=== PATIENT | female | born 1935 | race Caucasian/White ===

== ENCOUNTER 2020-06-12 12:39 | Inpatient (IN) | payer OTHER ==
--- OUTSIDE RECORDS SUMMARY | 2020-06-12 12:41 | XMS REPORT | Continuity of Care Document ---
:1935 Author Organization [facility] t Address [address] [place] [address] Dr. Fishman [address] [place] [address] Care Team Providers Name Role Phone Dane LEDBETTER, G Attending Clinician Problems Condition Condition Condition Status Onset Resolution Last Treating Co mments Source Name Details Category Date Date Treatment Clinician Date Venous Venous Problem Active [facility] insufficie insufficie Soniya kes - ncy ncy Memoria (chronic) (chronic) l (periphera (periphera Ou tpati l) l) ent Clinics Atrophic Atrophic Problem [facility] Neuropathy Neuropathy Problem Active [facility] Osteoarthr Osteoarthr Problem Active [facility] itis, itis, [facility] - unspecifie unspecifie Me moria d d l osteoarthr osteoarthr Ou tpati itis type, itis type, en t unspecifie unspecifie Cl inics d site d site Seasonal Seasonal Problem Active [facility] allergic allergic [facility] - rhinitis, rhinitis, Franco ching unspecifie unspecifie l d trigger d trigger Outp ati ent Clinics Hyponatrem Hyponatrem Problem Active [facility] ia ia [facility] Benign Benign Problem Active [facility] essential essential [facility] - HTN HTN Memoria l Outpati ent Clinics GERD GERD Problem Active [facility] (gastroeso (gastroeso Soniya kes - phageal phageal Memoria reflux reflux l disease) disease) Outpat i ent Clinics Constipati Constipati Problem Active [facility]ics Hypothyroi Hypothyroi Problem Active [facility] dism dism [facility] Hypertrigl Hypertrigl Problem Active [facility] yceridemia yceridemia Soniya kes - Memoria l [facility] ent Clinics Trochanter Trochanter Problem Active [facility] ic ic [facility] - bursitis bursitis Memori a of right of right l hip hip [facility] ent Clinics Primary Primary Problem Active [facility] osteoarthr osteoarthr Soniya kes - itis itis Memoria involving involving l multiple multiple Outpat i joints joints ent Clinics Temporary Temporary Problem Active [facility] low low [facility] - platelet platelet Memori a count count l [facility] ent Clinics Fatty Fatty Problem Active [facility] liver liver [facility] Difficulty Difficulty Diagnosis Active [facility] urinating urinating [facility] - [facility] l [facility] ent [facility]ics Elevated Elevated Diagnosis Active [facility] LFTs LFTs kes - Memoria l [facility] ent [facility]ics Prediabete Prediabete Diagnosis Active [facility] s [facility] Allergies, Adverse Reactions, Alerts Allergy Allergy Status Severity Reaction(s) Onset Inactive Treating Comm ents Source Name Type Date Date Clinician Cipro Adverse Active Info Not [facility] Reaction Available [facility] Medications Ordered Filled Start Stop Current Ordering Indication Dosage Frequency Signature Comments Components Source Medication Medication Date Date Medication? Clinician (SIG) Name Name Valtrex Valtrex Yes Na Fregoso [address] [facility] Oscal Oscal Yes Na Fregoso [address] 500/200 D-3 500/200 D-3 with food [facility] Lisinopril Lisinopril Yes Na Fregoso [address] [facility] Amlodipine Amlodipine Yes Na Fregoso [address] Besylate Besylate kes - Memoria [facility] ent Clinics Albuterol Albuterol Yes Na Fregoso not [facility] defined [facility] Estrace Estrace Yes Na Fregoso not [facility] defined [facility] Zestoretic Zestoretic Yes Na Fregoso [address] [facility] Gabapentin Gabapentin Yes Na Fregoso [address] [facility] Coreg Coreg Yes Na Fregoso [address] [facility] Nexium Nexium Yes Na Fregoso [address] [facility] Procedures This patient has no known procedures. Encounters Start End Encounter Admission Attending Care Care Encounter Source Date/Time Date/Time Type Type Clinicians Facility Department ID 2020-06-06 2020-06-06 [facility] [id number] [address] 10:00[facility]00 10:00:00 [place] [facility] Outpati ent Clinics 2020-05-16 2020-05-17 Office Dane [facility] [id number] 09:26:30 10:40:38 Visit Silverio Gil [facility]PEC [id number] IAY [id number] [place] [id number] [facility] 2020-04-25 2020-04-25 [facility] [id number] 14:00:00 14:00:00 [facility] Outpati ent Clinics 2020-04-03 2020-04-[address] [id number] [address] 10:13:00 10:13:00 [facility] Outpat[facility] ent Clinics 2020-04-03 2020-04-03 [facility] [id number] 09:40:00 09:40:00 t [facility] Medicine Medicine Outpati ent Clinics 2019-09-17 2019-09-17 [facility] [id number] 10:00:00 10:00:00 t [facility] Medicine Medicine Outpati ent Clinics 2019-03-18 2019-03-18 [facility] [id number] 10:40:00 10:40:00 t [facility] Medicine Medicine Outpati ent Clinics 2019-02-26 2019-02-26 [facility] [id number] 08:49:00 08:49:00 t [facility] Medicine [facility] Outpati ent Clinics 2019-02-05 2019-02-05 [facility] [id number] 08:20:00 08:20:00 t [employer] - [employer] [facility] Medicine Outpati ent Clinics 2018-11-11 2018-11-11 [facility] [id number] 08:30:00 08:30:00 t [place] [employer] - [employer] [facility] Medicine Outpati ent Clinics 2018-09-22 2018-09-22 [facility] [id number] 10:30:00 10:30:00 t [employer] - [employer] [facility] Medicine Outpati ent Clinics 2018-06-22 2018-06-22 [facility] [id number] 08:15:00 08:15:00 t Liiiike [facility] Medicine Outpati ent Clinics 2018-03-11 2018-03-11 [facility] [id number] 09:44:00 09:44:00 t Parkman [employer] [facility] Medicine Outpati ent Clinics 2018-03-10 2018-03-10 [facility] [id number] 08:00:00 08:00:00 t [employer] [facility] Medicine Outpati ent Clinics Results This patient has no known results.
--- OUTSIDE RECORDS SUMMARY | 2020-06-12 12:41 | XMS REPORT ---
:1935 Author Organization eClinicalWorks Care Team Providers Name Role Phone Fregoso, Na Provider Role Unavailable Allergies No Known Allergies Problems Problem Type Condition Code Onset Dates Condition Statu s Problem Benign essential HTN I10 Active Problem Atrophic vaginitis N95.2 Active Problem Hypothyroidism E03.9 Active Problem Temporary low platelet count D69.6 Active Problem Trochanteric bursitis of right hip M70.61 Active Problem Fatty liver K76.0 Active Problem Seasonal allergic rhinitis, J30.2 Active unspecified trigger Problem Hyponatremia E87.1 Active Problem Primary osteoarthritis involving M15.0 Active multiple joints Problem Osteoarthritis, unspecified M19.90 Active osteoarthritis type, unspecified site Problem Neuropathy G62.9 Active Problem Venous insufficiency (chronic) I87.2 Active (peripheral) Problem Constipation K59.00 Active Problem Hypertriglyceridemia E78.1 Active Problem GERD (gastroesophageal reflux K21.9 Active disease) Medications Medication Code Code Instructions Start End Status Dosage System Date Date Levothyroxine [facility] 98293322984 137 MCG Orally March e 1 tablet Sodium Once a day 08, on an 2019 empty stomach in the morning Results No Known Results Summary Purpose eClinicalWorks Submission
--- OUTSIDE RECORDS SUMMARY | 2020-06-12 12:41 | XMS REPORT | Summary of Care ---
:1935 Author Organization [facility] Address [address] [place] [address] Care Team Providers Name Role Phone Marlene Primary Care Provider Reason for Visit Reason Comments Re-evaluation Encounter Details Date Type Department Care Team Description 04/06/2020 Office Visit [facility] VelaSilverio Other vir al warts (Primary Dx); Dermatology, Alexei Gil MD History of nonmelanoma skin cancer; [address] Neoplasm of uncertain behavi or of skin; [place] [facility] [id number] Actinic keratosis; South, Entrance [place], [place] Other se[place] [phone] Allergies No Known Allergiesdocumented as of this encounter (statuses as of 04/06/2020) Medications Medication Sig Dispensed Refills Start Date End Date Status carvedilol (COREG) 25 mg 1 2016 Active tablet levothyroxine 0 05/10/2016 Activ e (SYNTHROID) 137 mcg tablet lisinopril-hydrochloroth 1 04/03/2016 Active iazide (PRINZIDE,ZESTORETIC) 20-25 mg per tablet valACYclovir (VALTREX) Take 1 tablet by 30 tablet 3 06/10/2016 Active 500 mg mouth 2 (two) tabletIndications: 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 0 12/03/2017 Active Macrocryst 100 mg capsule documented as of this encounter (statuses as of 04/06/2020) Active Problems No known active problemsdocumented as of this encounter (statuses as of 04/06/2020) Social History Tobacco Use Types Packs/Day Years Used Date Never Smoker Smokeless Tobacco: Never Used Alcohol Use Drinks/Week oz/Week Comments No 0 Standard drinks or equivalent 0.0 Sex Assigned at Date Recorded Not on file Job Start Date Occupation Industry Not on file Not on file Not on file Travel History Travel Start Travel End No recent travel history available. documented as of this encounter Last Filed Vital Signs Not on filedocumented in this encounter Progress Notes Josefa Leblanc MD - 04/06/2020 2:45 PM CDT Chief Complaint: spot on elbow History of Present Illness: Martin De Jesus is a 83 year old female with a history of skin cancer who presents today for [place]. 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 Site is wellhealed without complications. Otherwise, she notes a raised growth on the left elbow. It gets caughton clothing and irritated. No pain or itching. No treatments tried. (+) = positive (-) = negative Review of Systems: Constitutional: (-) pain Integumentary: (-) itching (-) color change (+) growth (-) rash Hem/Lymph: (-) bleeding Social History: lives in [place] Past Medical History: Diagnosis Date Cataract Esophageal reflux Hypertension Thyroid disease Wears dentures Past Surgical History: Procedure Laterality Date BONE SPUR EXCISION Right Right Foot CAVAZOS BLADDER SUSPENSION CHOLECYSTECTOMY COLONOSCOPY HERNIA REPAIR HYSTERECTOMY PHACOEMULSIFICATION OF CATARACT WITH INTRAOCULAR LENS IMPLANT Left 04/19/2015 Surgeon: Ralph Rabago MD; Location: [facility] No family history on file. Social History Socioeconomic History Marital status: Spouse name: Not on file Number of children: Not on file Years of education: Not on file Highest education level: Not on file Occupational History Not on file Social Needs Financial resource strain: Not on file Food insecurity: Worry: Not on file Inability: Not on file Transportation needs: Medical: Not on file Non-medical: Not on file Tobacco Use Smoking status: Never Smoker Smokeless tobacco: Never Used Substance and Sexual Activity Alcohol use: No Alcohol/week: 0.0 standard drinks Drug use: No Sexual activity: Not on file Lifestyle Physical activity: Days per week: Not on file Minutes per session: Not on file Stress: Not on file Relationships Social connections: Talks on phone: Not on file Gets together: Not on file Attends restorationist service: Not on file Active member of club or organization: Not on file Attends meetings of clubs or organizations: Not on file Relationship status: Not on file Intimate partner violence: Fear of current or ex partner: Not on file Emotionally abused: Not on file Physically abused: Not on file Forced sexual activity: Not on file Other Topics Concern Not on file Social History Narrative Not on file Physical Exam There were no vitals filed for this visit. (-) = negative/no exam findings General: Awake, alert, no acute distress. Appears well-developed and well-nourished. Neurological/Psychiatric: Normal mood, affect, behavior, speech, and thought process. Oriented to person, place, time and situation. Skin: warm, dry FACE: Positive EYES: Negative NOSE: Positive EARS: Negative SCALP: Negative NECK: Negative CHEST: Positive ABDOMEN: Negative BACK: Negative RIGHT ARM: See image LEFT ARM: Positive (.shave) RIGHT LEG: Positive LEFT LEG: Negative NAILS: Negative Assessment and Plan 1. 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 Risks discussed (pain, infection, bleeding, scarring). Verbal consent obtained - Area prepped with alcohol. Local anesthesia obtained with 1% lidocaine with epinephrine. 0.5 cm tangential bx performed. Specimen sent to pathology for analysis, pt to be contacted with results. - ELECTRODESSICATION AND CURETTAGE: Risks discussed, including pain, infection, bleeding, scarring and recurrence. Verbal informed consent obtained. Area prepped with alcohol. Local anesthesia providedwith 1% lidocaine with epinephrine. Curettage and electrodessication performed twice to 1 lesion(s). Petrolatum and bandage applied. Wound care discussed. Lesion size 1.1 cm 2. Neoplasm of Uncertain Behavior - R medial calf - Ddx: SCC vs BCC vs other - Discussed differential diagnosis and treatment options with patient. Risks discussed (pain, infection, bleeding, scarring). Verbal consent obtained - Area prepped with alcohol. Local anesthesia obtained with 1% lidocaine with epinephrine. 0.5 cm tangential bx performed. Specimen sent to pathology for analysis, pt to be contacted with results. Hemostasis obtained with AlCl. Vaseline and bandage applied. Wound care discussed 3. Neoplasm of Uncertain Behavior - R nasal tip - Ddx: BCC vs SCC vs other - Discussed differential diagnosis and treatment options with patient. Risks discussed (pain, infection, bleeding, scarring). Verbal consent obtained - Area prepped with alcohol. Local anesthesia obtained with 1% lidocaine with epinephrine. 0.5 cm tangential bx performed. Specimen sent to pathology for analysis, pt to be contacted with results. Hemostasis obtained with AlCl. Vaseline and bandage applied. Wound care discussed Verruca Vulgaris, L elbow -Discussed etiology, expected course, and management options. -Counseled about viral nature of this condition, including tendency to persist/recur and require multiple treatments. -Verbal consent obtained. Time out performed. 1 lesion(s) treated with LN2. -Patient informed of potential for erythema, blister formation, hyper/hypopigmentation, and scar at site of treatment. Wound care discussed. Actinic Keratosis, nose - Discussed etiology, prognosis and treatment options with patient. Discussed relation to sun exposure and premalignant potential of lesions - Verbal consent obtained. 1 lesion(s) treated with LN2. Pt informed of potential for erythema, blister formation, hyper- or hypopigmentation, and scar at site of tx. Wound care discussed - Counseled patient about sunscreen/sun avoidance/sun protection. 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 RTC 1 months. Patient was seen with Dr. Vela, who agrees with plan of care. Josefa Leblanc MD [facility] Dermatology, PGY-2 04/06/2020 2:49 PM documented in this encounter Plan of Treatment Date Type Specialty Care Team Description 05/09/2020 Office Visit Dermatology Usman Vela MD [address] [place] [phone] 08/28/2020 Office Visit Dermatology Usman Vela MD [address] [place], [place] [address] Health Maintenance Due Date Last Done Comments DTaP,Tdap,and Td Vaccines (1 - Tdap) 1945 Zoster Recombinant Vaccine (SHINGRIX) (1 of 2) 1984 Medicare Wellness Visit 1999 Osteoporosis Screening 1999 PNEUMOCOCCAL VACCINES 65+ (1 of 2 - PCV13) 1999 INFLUENZA VACCINE (Season Ended) 2020 Depression Screening 08/26/2020 08/26/2019 documented as of this encounter Implants Implanted Type Area Report Checker Device Shelf Model / Serial Identifier Expiration / Lot Date [id number] LENS Left: Eye Faisal 02/24/2019 [id number] / Implanted: Qty: 1 on 04/19/2015 by Ralph Galvez MD at [facility] 0 [id number] / [id number] documented as of this encounter Results Not on filedocumented in this encounter Visit Diagnoses Diagnosis Other viral warts - Primary History of nonmelanoma skin cancer Personal history of other malignant neop lasm of skin Neoplasm of uncertain behavior of skin Actinic keratosis Other seborrheic keratosis documented in this encounter Insurance Payer Benefit Plan / Subscriber ID Effective Dates Phone Addre ss Type Group MEDICARE MEDICARE PART xxxxxxxxxxx 1999-[place] [phone] 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
--- OUTSIDE RECORDS SUMMARY | 2020-06-12 12:41 | XMS REPORT ---
:1935 Author Organization eClinicalWorks Care Team Providers Name Role Phone Fregoso, Na Provider Role Unavailable Allergies, Adverse Reactions, Alerts Substance Reaction Event Type Cipro Info Not Available Drug Allergy Problems Problem Type Condition Code Onset Dates Condition Statu s Assessment Abnormal complete blood count R79.89 Active Assessment Temporary low platelet count D69.6 Active Assessment Elevated LFTs R79.89 Active Problem Constipation K59.00 Active Assessment Fatty liver K76.0 Active Problem GERD (gastroesophageal reflux K21.9 Active disease) Assessment Seasonal allergic rhinitis, J30.2 Active unspecified trigger Problem Benign essential HTN I10 Active Problem Atrophic vaginitis N95.2 Active Problem Hypothyroidism E03.9 Active Problem Temporary low platelet count D69.6 Active Problem Trochanteric bursitis of right hip M70.61 Active Assessment Prediabetes R73.03 Active Assessment Hyponatremia E87.1 Active Problem Fatty liver K76.0 Active Assessment Osteoarthritis, unspecified M19.90 Active osteoarthritis type, unspecified site Problem Seasonal allergic rhinitis, J30.2 Active unspecified trigger Problem Hyponatremia E87.1 Active Problem Primary osteoarthritis involving M15.0 Active multiple joints Problem Osteoarthritis, unspecified M19.90 Active osteoarthritis type, unspecified site Assessment Hypothyroidism E03.9 Active Assessment Benign essential HTN I10 Active Assessment Neuropathy G62.9 Active Assessment Hypertriglyceridemia E78.1 Active Problem Neuropathy G62.9 Active Problem Venous insufficiency (chronic) I87.2 Active (peripheral) Problem Hypertriglyceridemia E78.1 Active Medications Medication Code Code Instructions Start End Status Dosage System Date Date Amlodipine ND 26836389651 5 MG Orally Active 1 tab let Besylate twice a day Gabapentin ND 43447539994 100 MG Orally Active 1 c apsule Three times a day Lisinopril [facility] 92204684656 20 MG Orally Active 1 ta blet Once a day in PM Zestoretic [facility] 39962143427 20-25 MG Orally Active 1 tablet Once a day in AM Nexium ND 61725329480 20 MG Orally Active 1 capsu le Once a day Levothyroxine [facility] 53557712685 125 MCG Orally Inactiv e 1 tablet Sodium Once a day on an empty stomach in the morning Valtrex [facility] 48372385002 500 MG Orally Active 1 tabl et Once a day Levothyroxine [facility] 94017325162 137 MCG Orally April 03, Active 1 tablet Sodium Once a day 2019 in the morning on an empty stomach Coreg [facility] 25973566347 25 MG Orally Active 1 table t twice a day Levothyroxine [facility] 08466334857 137 MCG Orally Active 1 tablet Sodium Once a day on an empty stomach in the morning Albuterol [facility] 56109573554 90 MCG/ACT Active not Inhalation defined Estrace [facility] 42088806952 0.1 MG/GM Active not Vaginal defined Oscal 500/200 [facility] 95807397302 500-200 MG-UNIT Active 1 tablet D-3 Orally Once a with food day Results No Known Results Summary Purpose eClinicalWorks Submission
--- OUTSIDE RECORDS SUMMARY | 2020-06-12 12:42 | XMS REPORT ---
[...] M19.90 Active osteoarthritis type, unspecified site Assessment Medicare annual wellness visit, Z00.00 Active subsequent Problem Neuropathy G62.9 Active Problem Venous insufficiency (chronic) I87.2 Active (peripheral) Problem Constipation K59.00 Active Problem Hypertriglyceridemia E78.1 Active Problem GERD (gastroesophageal reflux K21.9 Active disease) Medications Medication Code Code Instructions Start End Status Dosage System Date Date Valtrex [facility] 98975985109 500 MG Orally Active 1 tabl et Once a day Oscal 500/200 [facility] 98735596853 500-200 MG-UNIT Active 1 tablet D-3 Orally Once a with food day Lisinopril [facility] 42833820693 20 MG Orally Active 1 ta blet Once a day in PM Amlodipine ND 43805851907 5 MG Orally Active 1 tab let Besylate twice a day Albuterol ND 31465050742 90 MCG/ACT Active not Inhalation defined Estrace [facility] 92286498996 0.1 MG/GM Active not Vaginal defined Zestoretic [facility] 52073954758 20-25 MG Orally Active 1 tablet Once a day in AM Gabapentin ND 78812602015 100 MG Orally Active 1 c apsule Three times a day Coreg ND 63354759370 25 MG Orally Active 1 table t twice a day Nexium ND 41587842334 20 MG Orally Active 1 capsu le Once a day Results No Known Results Summary Purpose eClinicalWorks Submission
--- OUTSIDE RECORDS SUMMARY | 2020-06-12 12:42 | XMS REPORT | Summary of Care ---
:1935 Author Organization [facility] Address [address] [place] [address] Care Team Providers Name Role Phone Marlene Primary Care Provider Reason for Visit Reason Comments Procedure Encounter Details Date Type Department Care Team Description 05/16/2020 Office Visit [facility] Silverio Vela eratosis (Primary Dx); Dermatology, Alexei Gil MD Basal cell carcinoma (BCC), unspecified site; [address] Squamous cell carcinoma in s itu of skin of right calf; [facility]0 [facility] [id number] Squamous cell carcinoma, arm, right South, [place] [phone] Allergies No Known Allergiesdocumented as of this encounter (statuses as of 05/17/2020) Medications Medication Sig Dispensed Refills Start Date [...] as of this encounter (statuses as of 05/17/2020) Active Problems No known active problemsdocumented as of this encounter (statuses as of 05/17/2020) Social History Tobacco Use Types Packs/Day Years [...] on filedocumented in this encounter Progress Notes Kev Sunshine MD - 05/16/2020 9:30 AM CDT Cc: treatment of skin cancer HPI Martin De Jesus is a 85 year old female who presents for treatment of skin cancer as below. Pt reports biopsy site(s) have healed well. No other new complaints today. Denies pacemaker or other electrical implanted device. Dermatopathology: 1) RIGHT FOREARM: SQUAMOUS CELL CARCINOMA, WELL-DIFFERENTIATED 2) RIGHT MEDIAL CALF: SQUAMOUS CELL CARCINOMA IN-SITU 3) RIGHT NASAL TIP: BASAL CELL CARCINOMA Histories Past Medical History: Diagnosis Date Cataract Esophageal reflux Hypertension Thyroid disease Wears dentures (+) history skin cancer Allergies No Known Allergies Medications Current Outpatient Medications on File Prior to Visit Medication Sig Dispense Refill amLODIPine 5 mg tablet 0 gabapentin 100 mg capsule 0 Nitrofurantoin&Nit. Macrocryst 100 mg capsule 0 levothyroxine 125 mcg tablet carvedilol (COREG) 25 mg tablet 1 levothyroxine (SYNTHROID) 137 mcg tablet 0 lisinopril-hydrochlorothiazide (PRINZIDE,ZESTORETIC) 20-25 mg per tablet 1 valACYclovir (VALTREX) 500 mg tablet Take 1 tablet by mouth 2 (two) times daily. 30 tablet 3 No current facility-administered medications on file prior to visit. Review of Systems (-) = negative (+) = positive Pacemaker (-) Physical Exam There were no vitals taken for this visit. Positive (+), Negative (-) General : No acute distress Psychiatric: Normal affect Pulmonary: Breathing unlabored FACE: Negative NOSE: Positive RIGHT ARM: See image LEFT ARM: Negative RIGHT LEG: Positive LEFT LEG: Negative (-)=Negative,(+)=Positive Actinic Keratosis (A): erythematous scaling papules [place] Hemaniogioma (CH): smooth red and purple papules Dermatitis Erythema (DE): mild to moderate erythema and scaling Dermatitis Lichenified (DL): lichenification and thickening Dermatitis Weeping (DW): weeping and excoriation Inflamed Seborrheic Keratosis (ISK): inflamed warty brown papules and plaques Millium (ML): Small white cystic papule Molluscum Contagiosum (MC): umbilicated papule Nevus Macular (NM): well circumscribed evenly pigmented macule Nevus Papular (PHARMACY CONSULTANT): well circumscribed evenly pigmented papule Psoriasis Circumscribed (PC): well circumscribed erythema and scaling Psoriasis Diffuse (PD): diffuse patches of erythema and scaling Seborrheic Keratosis (SK): verrucous brown papules and plaques Scar (SR): cicatricial change Verruca Vulgarus (W): warty hyperkeratotic papule Assessment/Plan 1) Biopsy Proven SCC: R forearm - Discussed treatment options - ED&C vs excision - Pt and physician agree that ED&C is best treatment option - Discussed risks of procedure including bleeding, infection, scar and recurrence - ED&C x 2, size: 0.9 cm - Wound care discussed 2) Biopsy Proven SCC: R medial calf - Discussed treatment options - ED&C vs excision - Pt and physician agree that ED&C is best treatment option - Discussed risks of procedure including bleeding, infection, scar and recurrence - ED&C x 2, size: 1.1 cm - Wound care discussed 3) Biopsy Proven BCC: R nasal tip - Discussed treatment options - ED&C vs excision - Pt and physician agree that ED&C is best treatment option - Discussed risks of procedure including bleeding, infection, scar and recurrence - ED&C x 2, size: 0.7 cm - Wound care discussed 4) Actinic keratosis/es, R arm - Discussed etiology (actinic damage), prognosis/premalignant potential, and treatment options. - CRYOTHERAPY: Verbal consent obtained. 2 lesion(s) treated with liquid nitrogen. Patient informed of potential for erythema, blister formation, hyper- or hypopigmentation, and scar at site of treatment. Wound care discussed - Counseled patient about sunscreen/sun avoidance/sun protection. 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 RTC 3 months Patient was seen and plan of care was discussed with Dr. Vela. Kev Sunshine MD 9:29 AM PGY-2 [facility] Dermatology documented in this encounter Plan of Treatment Date Type Specialty Care Team Description 08/28/2020 Office Visit Dermatology Usman Vela MD [address] [place] [address] 555 Health Maintenance Due Date Last Done Comments DTaP,Tdap,and Td Vaccines (1 - Tdap) 1945 Zoster Recombinant Vaccine (SHINGRIX) (1 of 2) 1984 Medicare Wellness Visit 1999 Osteoporosis Screening 1999 PNEUMOCOCCAL VACCINES 65+ (1 of 2 - PCV13) 1999 INFLUENZA VACCINE (#1) 2020 Depression Screening 08/26/2020 08/26/2019 documented as of this encounter Implants Implanted Type Area Hand Cloth Examiner Device Shelf Model / Serial Identifier Expiration / Lot Date Sn60wf LENS Left: Eye Faisal 02/24/2019 [id number] / Implanted: Qty: 1 on 04/19/2015 by Ralph Galvez MD at [facility] 7 [id number] / [id number] documented as of this encounter Results Not on filedocumented in this encounter Visit Diagnoses Diagnosis Actinic keratosis - Primary Basal cell carcinoma (BCC), unspecified site Squamous cell carcinoma in situ of skin of right calf Squamous cell carcinoma, arm, right documented in this encounter Insurance Payer Benefit Plan / Subscriber ID Effective Dates Phone Addre ss Type Group MEDICARE MEDICARE PART xxxxxxxxxxx 1999-Shaheen [phone] [address] Medicare A & B t 2 [id number] [address] [phone] [facility] [place] (Home) [address] (Work) [phone] documented as of this encounter Advance Directives Type Date Recorded Patient Flight Surgeon Explanati on Advance Directives and Living Will Power of Electronics Engineering Manager
--- OUTSIDE RECORDS SUMMARY | 2020-06-12 12:42 | XMS REPORT | Summary of Care ---
:1935 Author Organization [facility] Address [address] [place] [address] Care Team Providers Name Role Phone Marlene Primary Care Provider Reason for Visit Reason Comments Procedure Encounter Details Date Type Department Care Team Description 05/16/2020 Office Visit [facility] Silverio Vela eratosis (Primary Dx); Dermatology, Alexei Gil MD Basal cell carcinoma (BCC), unspecified site; [address] Squamous cell carcinoma in s itu of skin of right calf; [facility]0 [facility] [id number] Squamous cell carcinoma, arm, right South, [place] [phone] Allergies No Known Allergiesdocumented as of this encounter (statuses as of 05/16/2020) Medications Medication Sig Dispensed Refills Start Date [...] as of this encounter (statuses as of 05/16/2020) Active Problems No known active problemsdocumented as of this encounter (statuses as of 05/16/2020) Social History Tobacco Use Types Packs/Day Years [...] well circumscribed evenly pigmented macule Nevus Papular (DOUBLER OPERATOR): well circumscribed evenly pigmented papule Psoriasis Circumscribed [...] Vela. Kev Sunshine MD 9:29 AM PGY-2 [facility] Dermatology documented in this encounter Plan of Treatment Date Type Specialty Care Team Description 08/28/2020 Office Visit Dermatology Usman Vela MD [address] [place] [address] Health Maintenance Due Date Last Done Comments DTaP,Tdap,and Td Vaccines (1 - Tdap) 1945 Zoster Recombinant Vaccine (SHINGRIX) (1 of 2) 1984 Medicare Wellness Visit 1999 Osteoporosis Screening 1999 PNEUMOCOCCAL VACCINES 65+ (1 of 2 - PCV13) 1999 INFLUENZA VACCINE (#1) 2020 Depression Screening 08/26/2020 08/26/2019 documented as of this encounter Implants Implanted Type Area Stone Crusher Operator Device Shelf Model / Serial Identifier Expiration / Lot Date Sn60wf LENS Left: Eye Faisal 02/24/2019 [id number] / Implanted: Qty: 1 on 04/19/2015 by Ralph Galvez MD at [facility] 8 [id number] / [id number] documented as of this encounter Results [...] BOX Medicare A & B t 2 [id number] [place] [phone] [facility] [place]Home) [address] (Work) [phone] documented as of this encounter Advance Directives Type Date Recorded Patient Seamer Panty Hose Explanati on Advance Directives and Living Will Power of Financial Institution Vice President
--- OUTSIDE RECORDS SUMMARY | 2020-06-12 12:42 | XMS REPORT | Summary of Care ---
:1935 Author Organization [facility] Address [address] [place] [address] Care Team Providers Name Role Phone Marlene Primary Care Provider Reason for Visit Reason Comments Procedure Encounter Details Date Type Department Care Team Description 05/16/2020 Office Visit [facility] Silverio Vela eratosis (Primary Dx); Dermatology, Alexei Gil MD Basal cell carcinoma (BCC), unspecified site; [address] Squamous cell carcinoma in s itu of skin of right calf; [facility]0 [facility] [id number] Squamous cell carcinoma, arm, right South, [place] [phone] Allergies No Known Allergiesdocumented as of [...] on filedocumented in this encounter Progress Notes Silverio Vela MD - 05/16/2020 9:30 AM CDTI saw the patient with Dr. Kev Sunshine I was present for the procedures. I agree with Dr. Sunshine's note as recorded. Silverio Vela M.D. May 17, 2020, 10:41 AM Kev Sunshine MD - 05/16/2020 9:30 AM [...] well circumscribed evenly pigmented macule Nevus Papular (PROCUREMENT PROFESSIONAL LOGISTICS): well circumscribed evenly pigmented papule Psoriasis Circumscribed [...] Vela. Kev Sunshine MD 9:29 AM PGY-2 [facility] Dermatology documented in this encounter Plan of Treatment Date Type Specialty Care Team Description 08/28/2020 Office Visit Dermatology Usman Vela MD [address] [place] [address] Health Maintenance Due Date Last Done Comments DTaP,Tdap,and Td Vaccines (1 - Tdap) 1945 Zoster Recombinant Vaccine (SHINGRIX) (1 of 2) 1984 Medicare Wellness Visit 1999 Osteoporosis Screening 1999 PNEUMOCOCCAL VACCINES 65+ (1 of 2 - PCV13) 1999 INFLUENZA VACCINE (#1) 2020 Depression Screening 08/26/2020 08/26/2019 documented as of this encounter Implants Implanted Type Area Metal Model Builder Device Shelf Model / Serial Identifier Expiration / Lot Date Sn60wf LENS Left: Eye Faisal 02/24/2019 [id number] / Implanted: Qty: 1 on 04/19/2015 by Ralph Galvez MD at [facility] 1 [id number] / [id number] documented as of this encounter Results [...] BOX Medicare A & B t 2 [phone] [place] [address] [phone] [place]Home) [address] (Work) [address] documented as of this encounter Advance Directives Type Date Recorded Patient Payroll Specialist Explanati on Advance Directives and Living Will Power of Call Center Director
--- OUTSIDE RECORDS SUMMARY | 2020-06-12 12:42 | XMS REPORT | Summary of Care ---
:1935 Author Organization [facility] Address [address] [place] [address] Care Team Providers Name Role Phone Marlene Primary Care Provider Reason for Visit Reason Comments Re-evaluation Encounter Details Date Type Department Care Team Description 04/06/2020 Office Visit [facility] VelaSilverio Other vir al warts (Primary Dx); Dermatology, Alexei Gil MD History of nonmelanoma skin cancer; [address] Neoplasm of uncertain behavi or of skin; [facility]0 [facility] [id number] Actinic keratosis; South, Entrance A [place], [place] [phone] Allergies No Known Allergiesdocumented as of [...] of skin cancer who presents today for [place]. At last visit in 07/2019, patient had [...] Hem/Lymph: (-) bleeding Social History: lives in [place] Past Medical History: Diagnosis Date Cataract Esophageal reflux Hypertension Thyroid disease Wears dentures Past Surgical History: Procedure Laterality Date BONE SPUR EXCISION Right Right Foot CAVAZOS BLADDER SUSPENSION CHOLECYSTECTOMY COLONOSCOPY HERNIA REPAIR HYSTERECTOMY PHACOEMULSIFICATION OF CATARACT WITH INTRAOCULAR LENS IMPLANT Left 04/19/2015 Surgeon: Ralph Rabago MD; Location: [facility] No family history on file. [...] file Gets together: Not on file Attends yazidism service: Not on file Active member of [...] with plan of care. Josefa Leblanc MD [facility] Dermatology, PGY-2 04/06/2020 2:49 PM documented in this encounter Plan of Treatment Date Type Specialty Care Team Description 05/09/2020 Office Visit Dermatology Usman Vela MD [address] [place] [address] 555 [phone] 08/28/2020 Office Visit Dermatology Usman Vela MD [address] [place], [place] [address] Health Maintenance Due Date Last Done Comments DTaP,Tdap,and Td Vaccines (1 - Tdap) 1945 Zoster Recombinant Vaccine (SHINGRIX) (1 of 2) 1984 Medicare Wellness Visit 1999 Osteoporosis Screening 1999 PNEUMOCOCCAL VACCINES 65+ (1 of 2 - PCV13) 1999 INFLUENZA VACCINE (Season Ended) 2020 Depression Screening 08/26/2020 08/26/2019 documented as of this encounter Implants Implanted Type Area Cabin Supervisor Device Shelf Model / Serial Identifier Expiration / Lot Date Sn60wf LENS Left: Eye Faisal 02/24/2019 [id number] / Implanted: Qty: 1 on 04/19/2015 by Ralph Galvez MD at [facility] 3 [id number] / [id number] documented as of this encounter Results [...] MEDICARE PART xxxxxxxxxxx 1999-Shaheen [phone] [facility] Medicare A & B t 2 [id number] [place] [address] [phone] [facility] [place] (Home) [phone] [address] (Work) [address] documented as of this encounter Advance Directives Type Date Recorded Patient Lead Teacher Explanati on Advance Directives and Living Will Power of Sports Activities Foul Judge
--- OUTSIDE RECORDS SUMMARY | 2020-06-12 12:42 | XMS REPORT | Summary of Care ---
:1935 Author Organization [facility] Address [address] [place] [address] Care Team Providers Name Role Phone Marlene Primary Care Provider Reason for Visit Reason Comments Procedure Encounter Details Date Type Department Care Team Description 05/16/2020 Office Visit [facility] Silverio Vela eratosis (Primary Dx); Dermatology, Alexei Gil MD Basal cell carcinoma (BCC), unspecified site; [address] Squamous cell carcinoma in s itu of skin of right calf; [facility]0 [facility] [id number] Squamous cell carcinoma, arm, right South, [place] [phone] Allergies No Known Allergiesdocumented as of [...] well circumscribed evenly pigmented macule Nevus Papular (PATIENT REGISTRATION SPECIALIST): well circumscribed evenly pigmented papule Psoriasis Circumscribed [...] Vela MD [address] [place] [address] Health Maintenance Due Date Last Done Comments DTaP,Tdap,and Td Vaccines (1 - Tdap) 1945 Zoster Recombinant Vaccine (SHINGRIX) (1 of 2) 1984 Medicare Wellness Visit 1999 Osteoporosis Screening 1999 PNEUMOCOCCAL VACCINES 65+ (1 of 2 - PCV13) 1999 INFLUENZA VACCINE (#1) 2020 Depression Screening 08/26/2020 08/26/2019 documented as of this encounter Implants Implanted Type Area Coffee Attendant Device Shelf Model / Serial Identifier Expiration / Lot Date Sn60wf LENS Left: Eye Faisal 02/24/2019 [id number] / Implanted: Qty: 1 on 04/19/2015 by Ralph Galvez MD at [facility] 7 [id number] / [id number] documented as of this encounter Results [...] BOX Medicare A & B t 2 [phone] [place] [address] [phone] [facility]5 [facility] [place]Home) [address] (Work) [address] documented as of this encounter Advance Directives Type Date Recorded Patient Rnfa Explanati on Advance Directives and Living Will Power of Database Design Analyst
--- OUTSIDE RECORDS SUMMARY | 2020-06-12 12:43 | XMS REPORT ---
:1935 Author Organization [employer] Care Team Providers Name Role Phone Fregoso, Na Provider Role Unavailable Allergies, Adverse Reactions, Alerts Substance Reaction Event Type Cipro Info Not Available Drug Allergy Problems Problem Type Condition Code Onset Dates Condition Statu s Problem Atrophic vaginitis N95.2 Active Problem Osteoarthritis, unspecified M19.90 Active osteoarthritis type, unspecified site Problem Hyponatremia E87.1 Active Problem Difficulty urinating R39.198 Active Assessment Elevated LFTs R79.89 Active Problem Temporary low platelet count D69.6 Active Problem Prediabetes R73.03 Active Problem Primary osteoarthritis involving M15.0 Active multiple joints Problem Seasonal allergic rhinitis, J30.2 Active unspecified trigger Problem Fatty liver K76.0 Active Problem Trochanteric bursitis of right hip M70.61 Active Problem Hypertriglyceridemia E78.1 Active Assessment Prediabetes R73.03 Active Assessment Difficulty urinating R39.198 Active Problem Constipation K59.00 Active Problem GERD (gastroesophageal reflux K21.9 Active disease) Problem Neuropathy G62.9 Active Problem Benign essential HTN I10 Active Problem Venous insufficiency (chronic) I87.2 Active (peripheral) Problem Hypothyroidism E03.9 Active Medications Medication Code Code Instructions Start End Status Dosage System Date Date Estrace [facility] 03677825219 0.1 MG/GM Active not Vaginal defined Nexium [facility] 95057911741 20 MG Orally Active 1 capsu le Once a day Oscal 500/200 [facility] 98370651901 500-200 MG-UNIT Active 1 tablet D-3 Orally Once a with food day Gabapentin ND 40243362838 100 MG Orally Active 1 c apsule Three times a day Albuterol [facility] 81445070059 90 MCG/ACT Active not Inhalation defined Zestoretic [facility] 10519733262 20-25 MG Orally Active 1 tablet Once a day in AM Coreg [facility] 23182411514 25 MG Orally Active 1 table t twice a day Amlodipine [facility] 18501867144 5 MG Orally Active 1 tab let Besylate twice a day Valtrex [facility] 95475805976 500 MG Orally Active 1 tabl et Once a day Lisinopril [facility] 09056804644 20 MG Orally Active 1 ta blet Once a day in PM Results Name Result Date Reference Range Unit Abnormali ty Flag URINALYSIS AUTO W/O SCOPE (34666) ----ДМИТРИЙ neg [id number] ----NIT neg 20200606 ----PROTEIN neg 20200606 ----pH 6.5 20200606 ----GLUCOSE neg [id number] ----KETONES trace 20200606 ----SPECIFIC GRAVITY 1.015 20200606 ----BLO neg [id number] Summary Purpose [employer] Submission
[2020-06-12] MEDS ORDERED: NA CHLORIDE 0.9% 500 ML ONE (14:53)
--- NOTE | 2020-06-12 15:03 | RAD REPORT ---
EXAM DESCRIPTION: RAD - Chest Single View - 06/12/2020 2:56 pm CLINICAL HISTORY: COUGH Chest pain. COMPARISON: CHEST PA AND LAT 2 VIEW dated 08/30/2015; CHEST PA AND LAT 2 VIEW dated 01/31/2015; CHEST S GIOVANNI VIEW dated 11/29/2012 FINDINGS: Portable technique limits examination quality. The lungs are grossly clear. The heart is normal in size. Aortic atherosclerosis. No displaced fractu res. IMPRESSION: No acute intrathoracic process suspected.
[2020-06-12 15:24] LABS: Absolute Lymphocytes (CBC) 0.4 K/uL (0.7-4.9); Basophils % 0.3 % (0-1.3); Lymphocytes % 67.7 % (15.3-44.8); RBC Red Blood Cell Count 2.78 M/uL (3.86-4.86)
[2020-06-12 15:45] LABS: Albumin 3.5 g/dL (3.4-5.0); Bilirubin Direct 0.4 mg/dL (0-0.2); Bilirubin Total 0.9 mg/dL (0.2-1.0); Potassium 3.5 mmol/L (3.5-5.1); Protein, Total 7.9 g/dL (6.4-8.2)
[2020-06-12 16:22] LABS: Blood Morphology Comment NOTED (NOT SEEN); Platelet Estimate DECR; Poikilocytosis 1+; Urine White Blood Cell Casts OK
[2020-06-12 17:12] LABS: Urine Bacteria 20-50 /HPF (<20); Urine Culture Reflex Order NOT NEEDED; Urine RBC <5 /HPF (NONE SEEN)
[2020-06-12 17:12] LABS: Urine Blood NEGATIVE (NEG); Urine Glucose NEGATIVE (NEG); Urine Protein NEGATIVE (NEG); Urine Specific Gravity 1.015 (1.005-1.030)
--- NOTE | 2020-06-12 17:25 | ER ---
Nurse's Notes [facility] Name: Martin De Jesus Age: 85 yrs Sex: Female : 1935 Arrival Date: 06/12/2020 Time: 12:41 Bed 26 Private MD: Tammi Fregoso Diagnosis: Pancytopenia Presentation: 06/12 12:54 Chief complaint: Patient's son or daughter states: She was dehydrated since last week, ca1 never gotten better. C/O sore all over, chills, back aches, and headaches, nausea. Denies fever. Reports a little bit of dry cough, a little bit SOB with exertion, sore throat. Coronavirus screen: Client denies travel out of the [place] in the last 14 days. chills, cough unrelated to allergies, headache, muscle pain, nausea, shortness of breath, sore throat, Client presents with at least one sign or symptom that may indicate coronavirus-19. Standard/surgical mask placed on the client. Provider contacted for isolation considerations. Ebola Screen: Patient negative for fever greater than or equal to 101.5 degrees Fahrenheit, and additional compatible Ebola Virus Disease symptoms Patient denies exposure to infectious person. Patient denies travel to an Ebola-affected area in the 21 days before illness onset. No symptoms or risks identified at this time. Initial Sepsis Screen: Does the patient meet any 2 criteria? No. Patient's initial sepsis screen is negative. Does the patient have a suspected source of infection? No. Patient's initial sepsis screen is negative. Risk Assessment: Do you want to hurt yourself or someone else? Patient reports no desire to harm self or others. Onset of symptoms was June 12, 2020. 12:54 Method Of Arrival: Wheelchair ca1 12:54 Acuity: JAMIN 3 ca1 Triage Assessment: 13:00 General: Appears in no apparent distress. comfortable, Behavior is calm, cooperative, ca1 appropriate for age. Neuro: Level of Consciousness is awake, alert, obeys commands, Oriented to person, place, time, situation. Historical: - Allergies: 13:00 No Known Allergies; ca1 - Home Meds: 13:03 carvedilol 25 mg oral tab 1 tab 2 times per day [Active]; ca1 lisinopril-hydrochlorothiazide 20-25 mg oral tab 1 tab once daily [Active]; lisinopril 20 mg Oral tab 1 tab once daily [Active]; amlodipine 5 mg tab 1 tab once daily [Active]; levothyroxine 125 mcg tab 1 tab once daily [Active]; gabapentin 100 mg oral cap 3 times per day [Active]; - PMHx: 13:00 Hypertension; ca1 13:03 Thyroid problem; ca1 - Immunization history:: Adult Immunizations up to date. - Social history:: Smoking status: Patient denies any tobacco usage or history of. - Family history:: not pertinent. - Hospitalizations: : No recent hospitalization is reported. Screenin:20 Abuse screen: Denies threats or abuse. Denies injuries from another. Nutritional ss screening: No deficits noted. Tuberculosis screening: Never had TB. Fall Risk None identified. Assessment: 15:00 General: Appears in no apparent distress. comfortable, Behavior is calm, cooperative, ss Reports chills for "off and on for two weeks". feeling ill for fatigue for >3 days, Denies fever. Pain: Complains of pain in sore throat. Neuro: Level of Consciousness is awake, alert, obeys commands, Oriented to person, place, time, situation. Neuro: Reports headache Denies dizziness. Cardiovascular: Capillary refill < 3 seconds is brisk in bilateral fingers Patient's skin is warm and dry. Respiratory: Airway is patent Respiratory effort is even, unlabored, Respiratory pattern is regular, symmetrical. Respiratory: Reports shortness of breath on exertion. GI: Abdomen is non-distended. : No signs and/or symptoms were reported regarding the genitourinary system. Denies burning with urination. EENT: Oral mucosa is moist. Derm: Skin is pink, warm \\T\\ dry. normal. Musculoskeletal: Circulation, motion, and sensation intact. Range of motion: intact in all extremities, Swelling absent. 17:20 Reassessment: Dr. Cramer at bedside to evaluate patient at this time. ss 19:31 Reassessment:. lp1 Vital Signs: 12:54 BP 121 / 51; Pulse 71; Resp 16 S; Temp 98.8(O); Pulse Ox 99% on R/A; Weight 77.11 kg ca1 (R); Height 5 ft. 5 in. (165.10 cm) (R); 17:15 BP 134 / 76; Pulse 65; Resp 16; Pulse Ox 96% ; Pain 0/10; ss 18:14 BP 155 / 82; Pulse 68; Pulse Ox 97% on R/A; Pain 0/10; ss 19:31 BP 128 / 52; Pulse 69; Resp 18; Pulse Ox 96% on R/A; lp1 12:54 Body Mass Index 28.29 (77.11 kg, 165.10 cm) ca1 ED Course: 12:41 Patient arrived in ED. ag5 12:41 Tammi Fregoso MD is Private Physician. ag5 12:59 Triage completed. ca1 13:00 Arm band placed on right wrist. ca1 14:20 Woody Lovell MD is Attending Physician. rn 14:56 XRAY Chest (1 view) In Process Unspecified. EDMS 15:04 Inserted saline lock: 20 gauge in right antecubital area, using aseptic technique. ss Blood collected. 15:10 Livia Aguilar RN is Primary Nurse. ss 17:20 Patient has correct armband on for positive identification. Bed in low position. Call ss light in reach. 17:24 Wilmer Cramer MD is Hospitalizing Provider. rn 18:32 No provider procedures requiring assistance completed. Patient admitted, IV remains in ss place. Administered Medications: 15:05 Drug: NS 0.9% 500 ml Route: IV; Rate: bolus; Site: right antecubital; ss 16:30 Follow up: IV Status: Completed infusion ss Outcome: 17:24 Decision to Hospitalize by Provider. rn 18:41 Instructed on the need for transfer. ss 19:32 Condition: stable lp1 19:34 Admitted to Med/surg accompanied by tech, via wheelchair, room 204, with chart, Report lp1 called to WALLY Patel 19:56 Patient left the ED. lp1 Signatures: Dispatcher [employer] EDMS Woody Lovell MD MD rn Smirch, Shelby, RN RN Cecilia Holly RN RN lp1 Alix Ross RN RN ca1 Shiraz Harvey ag5 Corrections: (The following items were deleted from the chart) 13:00 12:54 Coronavirus screen: Client denies travel out of the [place] in the last 14 days. At ca1 this time, the client does not indicate any symptoms associated with coronavirus-19. ca1 18:34 16:18 BP 155 / 82; Pulse 68bpm; Pulse Ox 97% RA; Pain 0/10; ss ss
--- NOTE | 2020-06-12 17:25 | EDPHYS ---
Physician Documentation [facility] Name: Martin De Jesus Age: 85 yrs Sex: Female : 1935 Arrival Date: 06/12/2020 Time: 12:41 Bed 26 Private MD: Tammi Fregoso ED Physician Woody Lovell HPI: 06/12 16:49 This 85 yrs old Female presents to ER via Wheelchair with complaints of rn Headache, Sore Throat, Body Aches. 17:17 Pt reports "not feeling well" and "never felt this sick", unclear onset, seen recently rn by PCP with neg UA. Reports headache, myalgias, fatigue, sore throat, cough, abd cramping. No known sick contacts. . 17:19 Onset: The symptoms/episode began/occurred 1 week(s) ago. Severity of symptoms: At rn their worst the symptoms were mild in the emergency department the symptoms are unchanged. The patient has not experienced similar symptoms in the past. The patient has been recently seen by a physician:. Historical: - Allergies: 13:00 No Known Allergies; ca1 - Home Meds: 13:03 carvedilol 25 mg oral tab 1 tab 2 times per day [Active]; ca1 lisinopril-hydrochlorothiazide 20-25 mg oral tab 1 tab once daily [Active]; lisinopril 20 mg Oral tab 1 tab once daily [Active]; amlodipine 5 mg tab 1 tab once daily [Active]; levothyroxine 125 mcg tab 1 tab once daily [Active]; gabapentin 100 mg oral cap 3 times per day [Active]; - PMHx: 13:00 Hypertension; ca1 13:03 Thyroid problem; ca1 - Immunization history:: Adult Immunizations up to date. - Social history:: Smoking status: Patient denies any tobacco usage or history of. - Family history:: not pertinent. - Hospitalizations: : No recent hospitalization is reported. ROS: 17:19 Constitutional: Negative for fever, chills, and weight loss, Eyes: Negative for injury, rn pain, redness, and discharge, Neck: Negative for injury, pain, and swelling, Cardiovascular: Negative for chest pain, palpitations, and edema, Respiratory: Negative for shortness of breath, wheezing, and pleuritic chest pain, Abdomen/GI: Negative for nausea, vomiting, diarrhea, and constipation, MS/Extremity: Negative for injury and deformity, Skin: Negative for injury, rash, and discoloration, Neuro: Negative for numbness, tingling, and seizure. Exam: 17:19 Constitutional: This is a well developed, well nourished patient who is awake, alert, rn and in no acute distress. Head/Face: Normocephalic, atraumatic. ENT: dry MM Neck: Trachea midline, no thyromegaly or masses palpated, and no cervical lymphadenopathy. Supple, full range of motion without nuchal rigidity, or vertebral point tenderness. No Meningismus. Cardiovascular: Regular rate and rhythm. No pulse deficits. Respiratory: No increased work of breathing, no retractions or nasal flaring. Abdomen/GI: soft, non-tender Skin: Warm, dry, no evidence of cellulitis MS/ Extremity: Pulses equal, no cyanosis. Neurovascular intact. Full, normal range of motion. Equal circumference. Neuro: Awake and alert, GCS 15, oriented to person, place, time, and situation. Cranial nerves II-XII grossly intact. Motor strength 5/5 in all extremities. Sensory grossly intact. Vital Signs: 12:54 BP 121 / 51; Pulse 71; Resp 16 S; Temp 98.8(O); Pulse Ox 99% on R/A; Weight 77.11 kg ca1 (R); Height 5 ft. 5 in. (165.10 cm) (R); 17:15 BP 134 / 76; Pulse 65; Resp 16; Pulse Ox 96% ; Pain 0/10; ss 18:14 BP 155 / 82; Pulse 68; Pulse Ox 97% on R/A; Pain 0/10; ss 19:31 BP 128 / 52; Pulse 69; Resp 18; Pulse Ox 96% on R/A; lp1 12:54 Body Mass Index 28.29 (77.11 kg, 165.10 cm) ca1 MDM: 14:20 Patient medically screened. rn 17:19 Differential Diagnosis COVID-19, viral syndrome, anemia. Data reviewed: vital signs, rn nurses notes, lab test result(s), radiologic studies, plain films, and as a result, I will admit patient. Counseling: I had a detailed discussion with the patient and/or guardian regarding: the historical points, exam findings, and any diagnostic results supporting the discharge/admit diagnosis, lab results, radiology results, the need for further work-up and treatment in the hospital. Response to treatment: the patient's symptoms have mildly improved after treatment, and as a result, I will admit patient. Admission orders: after a detailed discussion of the patient's condition and case, the admit orders are written by me. ED course: Pt with story of viral syndrome, COVID-19 sent, CBC shows pancytopenia, predominantly leukopenia, admitted to Holli Cramer for further w/u. . 06/12 14:29 Order name: CBC with Diff; Complete Time: 16:41 06/12 14:29 Order name: Basic Metabolic Panel; Complete Time: 16:41 06/12 14:29 Order name: Urine Microscopic Only; Complete Time: 17:48 06/12 14:29 Order name: Procalcitonin; Complete Time: 17:48 06/12 14:29 Order name: Lactate; Complete Time: 16:41 06/12 14:29 Order name: Urine Culture 06/12 14:29 Order name: Blood Culture Adult (2) 06/12 14:29 Order name: Strep; Complete Time: 16:41 06/12 14:29 Order name: Flu; Complete Time: 16:48 06/12 14:29 Order name: Hepatic Function; Complete Time: 16:41 06/12 14:29 Order name: Lipase; Complete Time: 16:41 06/12 15:29 Order name: CBC Smear Scan; Complete Time: 16:41 [facility] 06/12 16:37 Order name: Throat Culture [facility] 06/12 14:29 Order name: IV Start; Complete Time: 15:10 06/12 14:29 Order name: Urine Dipstick-Ancillary (obtain specimen); Complete Time: 16:51 06/12 14:29 Order name: XRAY Chest (1 view); Complete Time: 15:06 06/12 17:00 Order name: Urine Dipstick--Ancillary (enter results); Complete Time: 17:48 06/12 17:45 Order name: Heart Healthy [facility] 06/12 17:45 Order name: Urinalysis [facility] 06/12 17:45 Order name: CBC with Automated Diff EDFL 06/12 17:45 Order name: CBC with Automated Diff [facility] 06/12 17:45 Order name: Comprehensive Metabolic Panel EDMS 06/12 17:45 Order name: Comprehensive Metabolic Panel EDFL 06/12 17:45 Order name: Magnesium EDMS 06/12 17:45 Order name: Magnesium EDFL 06/12 17:45 Order name: Phosphorus EDMS 06/12 17:45 Order name: Phosphorus EDMS 06/12 18:27 Order name: SARS-COV-2 RT PCR EDFL 06/12 14:29 Order name: Labs collected and sent; Complete Time: 15:10 rn Administered Medications: 15:05 Drug: NS 0.9% 500 ml Route: IV; Rate: bolus; Site: right antecubital; ss 16:30 Follow up: IV Status: Completed infusion ss Disposition: 06/12/20 17:24 Hospitalization ordered by Wilmer Cramer for Observation. Preliminary diagnosis is Pancytopenia. - Bed requested for Telemetry/MedSurg (observation). - Status is Observation. lp1 - Condition is Stable. - Problem is new. - Symptoms are unchanged. Signatures: Dispatcher [facility] Lesly Alfaro, RN RN dw Woody Lovell MD MD rn Smirch, Shelby, RN RN ss Cecilia Holly RN RN lp1 Fernando Parrish, FAMILY LAW PARALEGAL-C FAMILY LAW PARALEGAL-Cla1 Alix Ross RN RN ca1 Corrections: (The following items were deleted from the chart) 17:20 14:30 CORONAVIRUS+MR.LAB.BRZ ordered. [facility] 18:41 17:24 Hospitalization Ordered by Wilmer Cramer MD for Observation. Preliminary dw diagnosis is Pancytopenia. Bed requested for Telemetry/MedSurg (observation). Status is Observation. Condition is Stable. Problem is new. Symptoms are unchanged. rn 19:56 18:41 06/12/2020 17:24 Hospitalization Ordered by Wilmer Cramer MD for Observation. lp1 Preliminary diagnosis is Pancytopenia. Bed requested for Telemetry/MedSurg (observation). Status is Observation. Condition is Stable. Problem is new. Symptoms are unchanged. dw
[2020-06-12] MEDS ORDERED: ONDANSETRON 4 MG/2 ML VIAL IV PRN (17:42)
--- NOTE | 2020-06-12 17:54 | P.HP ---
Certification for Inpatient Patient admitted to: Inpatient With expected LOS: >2 Midnights Practitioner: I am a practitioner with admitting privileges, knowledge of patient current condition, hospital course, and medical plan of care. Services: Services provided to patient in accordance with Admission requirements found in Title 42 Section 412.3 of the Code of Federal Regulations Patient History Date of Service: 06/12/20 Reason for admission: Neutropenic fever History of Present Illness: 85 yrs old female with past medical history hypothyroidism, hypertension, hy perlipidemia, IBS admitted with complaints of headaches or throat and body aches. Patient states that the symptoms started on Friday last week and has been progressively worsening. Denies any fever or chills but associated with headache myalgia and sore throat cough which is productive of mucoid sputum and abdominal cramp. Denies any chest pain or shortness of breath no nausea vomiting or diarrhea Patient was assessed in the ER and was found to have possible viral syndrome and neutropenia and was admitted for further management Allergies No Known Allergies Allergy (Unverified 11/29/12 10:54) Home medications list reviewed: Yes Home Medications: Calcium Carbonate/Vitamin D3 [Calcium 600-Vit D3 200 Tablet] 1 each PO DAILY 11/30/12 Diltiazem HCl [Taztia Xt] 360 mg PO DAILY 11/30/12 Esomeprazole Magnesium [Nexium] 40 mg PO DAILY 11/30/12 Fiber [Fiber Diet] 6 each PO BID 11/30/12 Levothyroxine [Synthroid*] 0.125 mg PO DAILY 11/30/12 Multivitamin [Multi-Vitamin Daily] 1 each PO DAILY 11/30/12 [place]-3/Dha/Epa/Fish Oil [[place]-3 Fish Oil 1,000 mg Sfgl] 1,000 mg PO DAILY 11/30/12 Fiber [Fiber Diet] 6 each PO BID #0 12/03/12 Fluconazole [Diflucan*] 200 mg PO DAILY #7 tab 12/03/12 Lactobacillus/Acidophilus [Lactinex*] 1 tab PO TID #42 tab 12/03/12 Lisinopril/Hydrochlorothiazide [Lisinopril-Hctz 20-25 mg Tab] 1 each PO DAILY #0 12/03/12 Loperamide [Imodium*] 2 mg PO UD #0 cap 12/03/12 Metoprolol Tartrate [Lopressor*] 25 mg PO BID #60 tab 12/03/12 - Past Medical/Surgical History Diabetic: No Past Medical History: Reviewed- Non-Contributory -: Hypertension -: Hyperlipidemia - Social History Alcohol use: No CD- Drugs: No Caffeine use: No Review of Systems 10-point ROS is otherwise unremarkable Physical Examination - Vital Signs Temperature: 98.4 F Blood Pressure: 146/92 Pulse: 78 Respirations: 18 - Physical Exam General: Alert, In no apparent distress, Oriented x3 HEENT: Atraumatic, Normocephalic Neck: Supple Respiratory: Clear to auscultation bilaterally Cardiovascular: Regular rate/rhythm, Normal S1 S2 Capillary refill: <2 Seconds Gastrointestinal: Soft and benign, Non-distended Musculoskeletal: No clubbing, No swelling Integumentary: No rashes, No breakdown Neurological: Normal speech, Normal strength at 5/5 x4 extr Lymphatics: No axilla or inguinal lymphadenopathy - Studies Laboratory Data (last 24 hrs) 06/12/20 15:04: Sodium 125 L, Potassium 3.5, BUN 8, Creatinine 0.72, Glucose 97, Total Bilirubin 0.9, AST 88 H, ALT 118 H, Alkaline Phosphatase 63, Lipase 85 06/12/20 15:04: WBC 0.6 L*, Hgb 9.5 L, Hct 27.0 L, Plt Count 82 L Microbiology Data (last 24 hrs): 06/12/20 14:54 Nasopharnyx Influenza Type A Antigen Screen - Final 06/12/20 14:54 Nasopharnyx Influenza Type B Antigen Screen - Final 06/12/20 14:54 Throat Group A Streptococcus Rapid Screen - Final Assessment and Plan - Problems (Diagnosis) (1) Neutropenic fever Current Visit: Yes Status: Acute (2) Viral syndrome Current Visit: Yes Status: Acute (3) COVID-19 ruled out Current Visit: Yes Status: Acute (4) Hypertension Current Visit: Yes Status: Acute (5) Hyperlipidemia Current Visit: Yes Status: Acute - Plan Neutropenic fever Possible viral syndrome To rule out COVID 19 Hypertension Hyperlipidemia Possible IBS Plan monitor under assistant district attorney CBC daily Start on antibiotics Will get cultures COVID 19 test is pending Continue home medications and titrate as needed Neutropenic precautions Will monitor renal parameters GI/DVT prophylaxis Advanced directives full code - Advance Directives Does patient have a Living Will: No Does patient have a Durable POA for Healthcare: No Time Spent Managing Pts Care (In Minutes): 42
[2020-06-12] MEDS: NA CHLORIDE 0.9% 1,000 ML IV SCH (20:29)
[2020-06-12] MEDS: ENOXAPARIN 40 MG/0.4 ML SQ SCH (20:29)
[2020-06-12] MEDS: CEFEPIME/SWI 1gm 10 ML IVP SCH (20:30)
[2020-06-12] MEDS: METOPROLOL TAR 25 MG TAB PO SCH (20:30)
[2020-06-12] MEDS: LACTOBACILLUS/ACIDOPHILUS TAB PO SCH (20:30)
[2020-06-12 20:59] VITALS: BMI 28.1
[2020-06-12] MEDS ORDERED: CEFEPIME 1 GM/VIAL IV SCH (21:00)
[2020-06-12] MEDS: FIBER PO SCH (21:00)
[2020-06-12 23:50] LABS: Urine Appearance CLEAR; Urine Bilirubin NEGATIVE (NEG); Urine Blood NEGATIVE (NEG); Urine Color YELLOW; Urine Glucose NEGATIVE (NEG); Urine Protein NEGATIVE (NEG); Urine Urobilinogen 0.2 mg/dL (0.2-1.0)
[2020-06-12 23:51] LABS: Urine Microscopic Reflex NO UMIC
[2020-06-13] MEDS: LEVOTHYROXINE SOD 0.125 MG TAB PO SCH (05:41)
[2020-06-13 05:59] LABS: Absolute Lymphocytes (CBC) 0.4 K/uL (0.7-4.9); Basophils % 0.4 % (0-1.3); Hematocrit 22.6 % (36.0-45.0); Lymphocytes % 72.4 % (15.3-44.8); MPV 6.7 fL (7.6-11.3); RBC Red Blood Cell Count 2.33 M/uL (3.86-4.86)
[2020-06-13 06:05] LABS: Albumin 3.1 g/dL (3.4-5.0); Bilirubin Total 0.7 mg/dL (0.2-1.0); Magnesium 1.9 mg/dL (1.8-2.4); Phosphorus 2.9 mg/dL (2.5-4.9); Potassium 3.8 mmol/L (3.5-5.1); Protein, Total 6.9 g/dL (6.4-8.2)
[2020-06-13] MEDS ORDERED: HYDROCHLOROTHIAZIDE PO SCH (09:00)
[2020-06-13] MEDS ORDERED: DILTIAZEM HCL 360 MG PO SCH (09:00)
[2020-06-13] MEDS ORDERED: HOME MED 1 EA UNK (Esomeprazole Magnesium [Nexium] 40 MG) PO SCH (09:00)
[2020-06-13] MEDS ORDERED: OMEGA PO SCH (09:00)
[2020-06-13] MEDS ORDERED: LISINOPRIL PO SCH (09:00)
[2020-06-13] MEDS ORDERED: FISH OIL PO SCH (09:00)
[2020-06-13] MEDS ORDERED: [UNRECOGNIZED DRUG - OTHER] PO SCH (09:00)
[2020-06-13] MEDS ORDERED: EPA PO SCH (09:00)
[2020-06-13] MEDS ORDERED: DHA PO SCH (09:00)
[2020-06-13] MEDS: ENOXAPARIN 40 MG/0.4 ML SQ SCH (09:00)
[2020-06-13] MEDS ORDERED: CALCIUM CARBONATE PO SCH (09:00)
[2020-06-13] MEDS ORDERED: VITAMIN D3 PO SCH (09:00)
[2020-06-13] MEDS ORDERED: POTASSIUM CL SA 10 MEQ TAB PO ONE (09:00)
[2020-06-13] MEDS: FIBER PO SCH ×2 (09:00→21:00)
--- NOTE | 2020-06-13 09:51 | P.PN ---
Subjective Date of Service: 06/13/20 Chief Complaint: Neutropenic fever Subjective: No new changes, Other (Denies any chest pain or shortness of breath Afebrile No abdominal pain No upper respiratory signs) Review of Systems 10-point ROS is otherwise unremarkable Physical Examination - Vital Signs Temperature: 97.2 F Blood Pressure: 162/70 Pulse: 75 Respirations: 20 Pulse Ox (%): 97 - Physical Exam General: Alert, In no apparent distress HEENT: Atraumatic, Normocephalic Neck: Supple Respiratory: Clear to auscultation bilaterally, Normal air movement Cardiovascular: Regular rate/rhythm, Normal S1 S2 Capillary refill: <2 Seconds Gastrointestinal: Soft and benign, W/out hepatosplenomegaly Musculoskeletal: No clubbing, No swelling Integumentary: No rashes, No breakdown Neurological: Normal speech, Normal strength at 5/5 x4 extr Lymphatics: No axilla or inguinal lymphadenopathy - Studies Laboratory Data (last 24 hrs) 06/12/20 15:04: Sodium 125 L, Potassium 3.5, BUN 8, Creatinine 0.72, Glucose 97, Total Bilirubin 0.9, AST 88 H, ALT 118 H, Alkaline Phosphatase 63, Lipase 85 06/12/20 15:04: WBC 0.6 L*, Hgb 9.5 L, Hct 27.0 L, Plt Count 82 L Microbiology Data (last 24 hrs): 06/12/20 14:54 Nasopharnyx Influenza Type A Antigen Screen - Final 06/12/20 14:54 Nasopharnyx Influenza Type B Antigen Screen - Final 06/12/20 14:54 Throat Group A Streptococcus Rapid Screen - Final Assessment & Plan - Problems (Diagnosis) (1) Neutropenic fever Current Visit: Yes Status: Acute (2) Viral syndrome Current Visit: Yes Status: Acute (3) COVID-19 ruled out Current Visit: Yes Status: Acute (4) Hypertension Current Visit: Yes Status: Acute (5) Hyperlipidemia Current Visit: Yes Status: Acute Physician Review Additional Text: Pancytopenia Neutropenic fever Possible viral syndrome To rule out COVID 19 Hypertension Hyperlipidemia Elevated LFTs UTI Plan Afebrile 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 GI/DVT prophylaxis Advanced directives full code Time Spent Managing Pts Care (In Minutes): 42
--- NOTE | 2020-06-13 10:48 | RAD REPORT ---
EXAM DESCRIPTION: US - Abdomen Exam Complete - 06/13/2020 10:40 am CLINICAL HISTORY: Abdominal pain. elevated LFT COMPARISON: Chest Single View dated 06/12/2020; CT ABD PELVIS W CONTRAST dated 11/29/2012; Lumbar Spine 3 Views dated 08/19/2017 FINDINGS: Prominent diffuse fatty liver is seen. Liver size is mildly prominent measuring 18 cm. No focal liver lesions or intrahepatic biliary dilatation is seen. Cholecystectomy. Common bile duct is normal in caliber measuring 5 millimeters. Both kidneys are normal in size, shape and echotexture. No hydronephrosis, focal lesion of concern or perinephric fluid. The spleen is normal in size measuring 11 cm. The pancreas and aorta are obscured by bowel gas. The visualized aspects of the IVC are grossly normal. IMPRESSION: Prominent diffuse fatty liver with mild hepatomegaly.
[2020-06-13 11:09] LABS: RBC Red Blood Cell Count 2.52 M/uL (3.86-4.86)
[2020-06-13] MEDS: LACTOBACILLUS/ACIDOPHILUS TAB PO SCH ×3 (11:34→21:18)
[2020-06-13] MEDS: MULTIVITAMIN TAB PO SCH (11:34)
[2020-06-13] MEDS: CALCIUM CARB 500MG/VIT D 200 IU TAB PO SCH (11:35)
[2020-06-13] MEDS: DILTIAZEM HCL 180 MG SR CAP PO SCH (11:35)
[2020-06-13] MEDS: PANTOPRAZOLE 40MG TABLET PO SCH (11:35)
[2020-06-13] MEDS: METOPROLOL TAR 25 MG TAB PO SCH ×2 (11:35→21:18)
[2020-06-13] MEDS: DOCOSAHEXANOIC AC/EPA 1000 MG PO SCH (11:35)
[2020-06-13] MEDS: CEFEPIME/SWI 1gm 10 ML IVP SCH ×2 (11:36→21:17)
[2020-06-13 11:55] LABS: Ferritin 1260.5 ng/mL (8-388); Folic Acid, (Folate) > 20.0 ng/mL (3.1-17.5)
[2020-06-13 12:37] LABS: Anisocytosis 1+; Blood Morphology Comment NOTED (NOT SEEN); Platelet Estimate DECR
[2020-06-13] MEDS: NA CHLORIDE 0.9% 1,000 ML IV SCH ×2 (14:00→18:39)
--- NOTE | 2020-06-13 17:06 | RAD REPORT ---
EXAM DESCRIPTION: CT - Chest Abdomen Pelvis W Cont - 06/13/2020 4:31 pm CLINICAL HISTORY: Chest and abdominal pain/pancytopenia TECHNIQUE: Computed axial tomography of the chest, abdomen and pelvis was obtained. 100 cc Isovue-30 0 was administered intravenously. Oral contrast was not requested. This limits evaluation of bowel. All CT scans are performed using dose optimization technique as appropriate and may include automated exposure control or mA/KV adjustment according to patient size. FINDINGS: Lungs are clear. No mediastinal or hilar lymphadenopathy No pleural effusion. No pericardial effusion. Small hiatal hernia Fatty liver. Cholecystectomy Spleen, pancreas, right adrenal kidneys are unremarkable. 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
[2020-06-13] MEDS ORDERED: LORAZEPAM 0.5 MG TABLET PO ONE (20:54)
--- NOTE | 2020-06-13 23:28 | P.CNS ---
Date of Consult: 06/13/20 (Hem/Onc) Reason for consultation: Pancytopenia History Of Present Illness 85 yrs old female with past medical history hypothyroidism, hypertension, hyperlipidemia, IBS admitted with complaints of generally feeling unwell, sorethroat, mouth sores and body aches. She reports seeing her pcp for some urinary urgency. Also was started recently on fluconazole for yeast infection. She has remained healthy all her life but felt more tired lately and reports some chills at night for the past 3 months. C/o bloated feeling with abdominal distension for the past few weeks. Patient was assessed in the ER and was found to have possible viral syndrome with severe neutropenia and was admitted for further management. Denies any loss of weight or appetite, NS, abnormal rash or swellings, early satiety, GI s/s, chest pains, cough, sob, bleeding, melena, autoimmune conditions, new/ OTC/herbal medications, sick contacts, travel etc. No recent heparin exposure. Hematology consulted for evaluation of pancytopenia Hb 8.1 gm WBC 0.6 ANC 0.1 Plt 67 Last cbc in March 2020 seems to show evidence of downtrending counts from her baseline. Hb 11gm Wbc 2/ anc 1 plt 121 ROS: a 14 point ROS was done and pertinent points as in HPI Medications: reviewed/ in chart/ see hpi NKDA PMH: as above PSH: Hysterectomy SH: lives alone Denies any alcohol intake, smoking or drug abuse. Physical Examination: Vitals: Hemodynamically stable. General Appearance: alert, cooperative, not in distress Skin, Hair & Nails: normal texture, normal turgor and color; No open wounds. Head: normocephalic, atraumatic. Eyes: anicteric, no injection of conjunctivae; + pallor Ears: grossly intact Nose: nares patent. Throat: no erythema, no exudate. Neck: neck supple, without lymphadenopathy. Respiratory: good respiratory effort, clear to auscultation; no wheezing. Cardiovascular: regular rate and rhythm, no murmurs, no cyanosis. Abdomen: bowel sounds present and equal in all four quadrants, abdomen is soft, nontender, non-distended, no masses, no hepatosplenomegaly. Peripheral Vascular: no edema, no calf tenderness Musculoskeletal: normal gait and posture; Neurological: AAOx3; moving all extremities Lymph: no palpable supraclavicular, submental, cervical, axillary, inguinal LAD. Labs reviewed. as above iron 85/ ferritin 1260 retic 1.6% LDH 181 B12 1800/ folate > 20 MEGA negative Imaging: No LAD, No HS Assessment/ Plan: 85 year old woman admitted with s/s generally feeling unwell, sorethroat, body aches, with severe pancytopenia, presumed due to viral syndrome. Pancytopenia: : Peripheral smear reviewed shows ? suspicious looking blast like cells. Few wbc. Normocytic anemia and no increased schistocytes. She has normal coag panel. Retic count is low when compared to the degree of anemia. Adequate iron, B12, folate, normal LDH. No evidence supportive of hemolysis, TTP, or DIC. Though clinical presentation could be part of a viral exanthema, cannot r/o primary hematological BM process like leukemia, MDS etc. Her blood counts seem to be gradually trending down since March 2020. Her clinical symptoms are likely from ongoing neutropenia and immunosuppressed state. > Basic pancytopenia work up in progress- flow cytometry for leukemia/ lymphoma evaluation sent. > She will need a bone marrow biopsy for further evaluation. She is somewhat hesitant and might incline for conservative measures but wishes to discuss with family for now. She understands that work up is needed for diagnosis. > c/w reverse isolation with broad spectrum antibiotic coverage- antibacterial, antiviral and and antifungal coverage. > Get ID recommendations > Monitor vitals closely. Clinically she seems quite improved and remains afebrile. > Avoid growth factor support for now. > transfuse if Hb < 8gm or if symptomatic less than 9 gm > transfuse single donor plts if plt count < 20K, or if bleeding if < 50K. Will closely follow. Please keep me posted if any change of status and do not hesitate to contact us with any questions or concerns. D/w Primary tram and Dr Cramer.
[2020-06-14] MEDS: PANTOPRAZOLE 40MG TABLET PO SCH (04:53)
[2020-06-14] MEDS: LEVOTHYROXINE SOD 0.125 MG TAB PO SCH (04:53)
[2020-06-14] MEDS: ACETAMINOPHEN 500 MG TAB PO PRN ×2 (04:55→19:53)
[2020-06-14 07:01] LABS: Potassium 3.6 mmol/L (3.5-5.1)
[2020-06-14 07:44] LABS: Absolute Lymphocytes (CBC) 0.4 K/uL (0.7-4.9); Basophils % 0.4 % (0-1.3); Hematocrit 24.1 % (36.0-45.0); Lymphocytes % 67.8 % (15.3-44.8); MPV 6.7 fL (7.6-11.3); RBC Red Blood Cell Count 2.48 M/uL (3.86-4.86)
[2020-06-14] MEDS: ENOXAPARIN 40 MG/0.4 ML SQ SCH (09:00)
[2020-06-14] MEDS: FIBER PO SCH ×2 (09:00→21:00)
[2020-06-14] MEDS ORDERED: POTASSIUM CL SA 10 MEQ TAB PO ONE (09:00)
[2020-06-14] MEDS: DILTIAZEM HCL 180 MG SR CAP PO SCH (09:10)
[2020-06-14] MEDS: CALCIUM CARB 500MG/VIT D 200 IU TAB PO SCH (09:10)
[2020-06-14] MEDS: LACTOBACILLUS/ACIDOPHILUS TAB PO SCH ×3 (09:10→19:53)
[2020-06-14] MEDS: hydroCHLOROthiazide 25 MG TAB PO SCH (09:11)
[2020-06-14] MEDS: lisinopriL 20 MG TAB PO SCH (09:11)
[2020-06-14] MEDS: CEFEPIME/SWI 1gm 10 ML IVP SCH ×2 (09:11→19:53)
[2020-06-14] MEDS: METOPROLOL TAR 25 MG TAB PO SCH ×2 (09:12→19:53)
[2020-06-14] MEDS: MULTIVITAMIN TAB PO SCH (09:12)
[2020-06-14] MEDS: DOCOSAHEXANOIC AC/EPA 1000 MG PO SCH (09:12)
[2020-06-14 10:14] LABS: Blood Morphology Comment NOTED (NOT SEEN); Platelet Estimate DECR; Urine White Blood Cell Casts OK
[2020-06-14 10:15] LABS: Anisocytosis 1+
--- NOTE | 2020-06-14 10:19 | P.CNS ---
Date of Consult: 06/14/20 Subjective: Patient is a 85-year-old female who presents with headache, sore throat, body aches since 06/05. Patient was seen by her PCP who did a urine sample that was negative. Patient's symptoms progressively got worse and she started to have fevers and dark colored stool. I was consulted for fever and pancytopenia. Past medical/surgical history: Hypertension, hyperlipidemia Social history: Reports quit smoking cigarettes in 1991 Allergies No Known Allergies Allergy (Verified 06/12/20 20:26) Active Medications Acetaminophen (Tylenol -Extra Strength) 500 mg PO Q4HP PRN PRN Reason: TEMP > 100' F Stop: 07/12/20 17:43 Last Admin: 06/14/20 04:55 Dose: 500 mg Documented by: Calcium Carbonate (Oscal 500 + Vit D 200 Iu Tab) 1 tab PO DAILY EFREN Stop: 07/13/20 09:01 Last Admin: 06/14/20 09:10 Dose: 1 tab Documented by: Diltiazem HCl (Cardizem Cd) 360 mg PO DAILY EFREN Stop: 07/13/20 09:01 Last Admin: 06/14/20 09:10 Dose: 360 mg Documented by: Enoxaparin Sodium (Lovenox 40 Mg Inj) 40 mg SQ DAILY EFREN Stop: 07/12/20 19:01 Last Admin: 06/14/20 09:00 Dose: Not Given Documented by: Fish Oil (Fish Oil 1,000 Mg Cap) 1,000 mg PO DAILY EFREN Stop: 07/13/20 09:01 Last Admin: 06/14/20 09:12 Dose: 1,000 mg Documented by: Home Med (Fiber [Fiber Diet]) 6 each PO BID EFREN Stop: 07/12/20 21:01 Last Admin: 06/14/20 09:00 Dose: Not Given Documented by: Hydrochlorothiazide (Hydrodiuril) 25 mg PO DAILY EFREN Stop: 07/14/20 09:01 Last Admin: 06/14/20 09:11 Dose: 25 mg Documented by: Sodium Chloride (Ns 1000 Ml Ivbag) 1,000 mls @ 50 mls/hr IV .Q20H EFREN Stop: 07/12/20 18:01 Last Admin: 06/13/20 18:39 Dose: 1,000 mls Documented by: Cefepime HCl (Maxipime 1 Gm/10 Ml Ivp) 10 mls @ 200 mls/hr IVP Q12HR EFREN Stop: 07/12/20 21:01 Last Admin: 06/14/20 09:11 Dose: 10 mls Documented by: Lactobacillus Acidoph/[place] (Lactinex) 1 tab PO TID EFREN Stop: 07/12/20 21:01 Last Admin: 06/14/20 09:10 Dose: 1 tab Documented by: Levothyroxine Sodium (Synthroid) 0.125 mg PO DAILYAC EFREN Stop: 07/13/20 06:31 Last Admin: 06/14/20 04:53 Dose: 0.125 mg Documented by: Lisinopril (Prinivil) 20 mg PO DAILY EFREN Stop: 07/14/20 09:01 Last Admin: 06/14/20 09:11 Dose: 20 mg Documented by: Metoprolol Tartrate (Lopressor) 25 mg PO BID EFREN Stop: 07/12/20 21:01 Last Admin: 06/14/20 09:12 Dose: 25 mg Documented by: Multivitamins/Minerals (Centrum Tablet) 1 tab PO DAILY EFREN Stop: 07/13/20 09:01 Last Admin: 06/14/20 09:12 Dose: 1 tab Documented by: Ondansetron HCl (Zofran) 4 mg IV Q6HP PRN PRN Reason: NAUSEA / VOMITING Stop: 07/12/20 17:43 Pantoprazole Sodium (Protonix Tab) 40 mg PO ACB EFREN Stop: 07/13/20 07:31 Last Admin: 06/14/20 04:53 Dose: 40 mg Documented by: Sodium Chloride (Normal Saline Flush) 10 ml IV BID EFREN Stop: 07/12/20 21:01 Last Admin: 06/14/20 09:00 Dose: Not Given Documented by: ROS: CV: Denies chest pain RESP: Denies shortness of breath and cough : Reports difficulty urinating a week ago that has improved GI: Reports loose dark stool x1 day, decreased appetite MSK: Reports generalized body aches HEENT: Reports painful gums and throat Objective: Temp Pulse Resp BP Pulse Ox 98.1 F 69 17 168/70 H 95 06/14/20 08:00 06/14/20 09:12 06/14/20 08:00 06/14/20 09:12 06/14/20 08:00 Labs: Na 130, K 3.6, BUN 7, creatinine 0.66, albumin 3.1, WBC 0.6, hemoglobin 8.6, hematocrit 24.1, platelets 72 Chest/Abd/ Pelvis CT 06/13: EXAM DESCRIPTION: CT - Chest Abdomen Pelvis W Cont - 06/13/2020 4:31 pm CLINICAL HISTORY: Chest and abdominal pain/pancytopenia TECHNIQUE: Computed axial tomography of the chest, abdomen and pelvis was o btained. 100 cc Isovue-300 was administered intravenously. Oral contrast was not requested. This limits evaluation of bowel. All CT scans are performed using dose optimization technique as appropriate and may include automated exposure control or mA/KV adjustment according to patient size. FINDINGS: Lungs are clear. No mediastinal or hilar lymphadenopathy No pleural effusion. No pericardial effusion. Small hiatal hernia Fatty liver. Cholecystectomy Spleen, pancreas, right adrenal kidneys are unremarkable. 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 Estrada
--- NOTE | 2020-06-14 11:21 | P.PN ---
Subjective Date of Service: 06/14/20 Chief Complaint: Neutropenic fever Subjective: No new changes, Other (Sorethroat is better Denies any chest pain or shortness of breath No fever or chills) Review of Systems 10-point ROS is otherwise unremarkable Physical Examination - Vital Signs Temperature: 98.1 F Blood Pressure: 168/70 Pulse: 69 Respirations: 17 Pulse Ox (%): 95 - Physical Exam General: Alert, In no apparent distress HEENT: Atraumatic, Normocephalic Neck: Supple, 2+ carotid pulse no bruit Respiratory: Clear to auscultation bilaterally, Normal air movement Cardiovascular: Regular rate/rhythm, Normal S1 S2 Capillary refill: <2 Seconds Gastrointestinal: Soft and benign, W/out hepatosplenomegaly Musculoskeletal: No clubbing, No swelling Integumentary: No rashes, No tenderness/swelling Neurological: Normal speech, Normal strength at 5/5 x4 extr Lymphatics: No axilla or inguinal lymphadenopathy - Studies Microbiology Data (last 24 hrs): 06/12/20 14:54 Throat Culture & Sensitivity - Final NORMAL UPPER RESPIRATORY MINOR GROWN. Assessment & Plan - Problems (Diagnosis) (1) Neutropenic fever Current Visit: Yes Status: Acute (2) Viral syndrome Current Visit: Yes Status: Acute (3) COVID-19 ruled out Current Visit: Yes Status: Acute (4) Hypertension Current Visit: Yes Status: Acute (5) Hyperlipidemia Current Visit: Yes Status: Acute Physician Review Additional Text: Pancytopenia Neutropenic fever Possible viral syndrome To rule out COVID 19 Hypertension Hyperlipidemia Elevated LFTs UTI Plan Pancytopenia still present Afebrile Monitor CBC daily On empiric antibiotics Continue home medications and titrate as needed Neutropenic precautions Will monitor renal parameters CT chest abdomen and pelvis findings noted Appreciate help from Hematology ? Blast cells in the peripheral smear ID consult Discuss with radiology May need Bone Marrow biopsy Monitor CBC and transfuse p.r.n. GI/DVT prophylaxis Advanced directives full code Time Spent Managing Pts Care (In Minutes): 42
[2020-06-14] MEDS ORDERED: TRAMADOL HCL 50 MG TAB PO ONE (21:34)
[2020-06-15] MEDS: NA CHLORIDE 0.9% 1,000 ML IV SCH (01:40)
[2020-06-15] MEDS: PANTOPRAZOLE 40MG TABLET PO SCH (05:32)
[2020-06-15] MEDS: LEVOTHYROXINE SOD 0.125 MG TAB PO SCH (05:32)
[2020-06-15] MEDS: ACETAMINOPHEN 500 MG TAB PO PRN (05:32)
[2020-06-15 06:45] LABS: Magnesium 1.8 mg/dL (1.8-2.4); Phosphorus 2.1 mg/dL (2.5-4.9); Potassium 3.7 mmol/L (3.5-5.1)
[2020-06-15] MEDS ORDERED: MAGNESIUM SULFATE 1 gm IVPB 1 GM/100 ML BAG IV ONE (08:00)
[2020-06-15] MEDS: LACTOBACILLUS/ACIDOPHILUS TAB PO SCH ×3 (08:31→21:08)
[2020-06-15] MEDS: DILTIAZEM HCL 180 MG SR CAP PO SCH (08:31)
[2020-06-15] MEDS: METOPROLOL TAR 25 MG TAB PO SCH ×2 (08:32→21:09)
[2020-06-15] MEDS: hydroCHLOROthiazide 25 MG TAB PO SCH (08:32)
[2020-06-15] MEDS: DOCOSAHEXANOIC AC/EPA 1000 MG PO SCH (08:32)
[2020-06-15] MEDS: MULTIVITAMIN TAB PO SCH (08:33)
[2020-06-15] MEDS: lisinopriL 20 MG TAB PO SCH (08:33)
[2020-06-15] MEDS: CALCIUM CARB 500MG/VIT D 200 IU TAB PO SCH (08:33)
[2020-06-15] MEDS: CEFEPIME/SWI 1gm 10 ML IVP SCH ×2 (08:34→21:08)
[2020-06-15] MEDS: ENOXAPARIN 40 MG/0.4 ML SQ SCH (08:34)
[2020-06-15] MEDS: FIBER PO SCH ×2 (08:51→21:00)
[2020-06-15] MEDS ORDERED: POTASSIUM PHOS IN 0.9 % NACL 15 MMOL/250 ML BAG IV ONE (09:00)
[2020-06-15 09:18] LABS: Absolute Lymphocytes (CBC) 0.4 K/uL (0.7-4.9); Basophils % 0.1 % (0-1.3); Hematocrit 23.1 % (36.0-45.0); Lymphocytes % 60.2 % (15.3-44.8); MPV 6.6 fL (7.6-11.3); RBC Red Blood Cell Count 2.37 M/uL (3.86-4.86)
--- NOTE | 2020-06-15 11:25 | P.PN ---
Subjective Date of Service: 06/15/20 Chief Complaint: Neutropenic fever Subjective: No new changes, No C/O voiced Physical Examination - Vital Signs Temperature: 97.9 F Blood Pressure: 152/66 Pulse: 71 Respirations: 19 Pulse Ox (%): 94 - Physical Exam General: Alert, In no apparent distress HEENT: Atraumatic, Normocephalic Neck: Supple Respiratory: Clear to auscultation bilaterally Cardiovascular: Regular rate/rhythm, Normal S1 S2 Capillary refill: <2 Seconds Gastrointestinal: Soft and benign, W/out hepatosplenomegaly Musculoskeletal: No clubbing, No swelling Integumentary: No rashes Neurological: Normal strength at 5/5 x4 extr Lymphatics: No axilla or inguinal lymphadenopathy - Studies Microbiology Data (last 24 hrs): 06/12/20 16:39 Clean Catch Urine [place] Count - Final >100,000 CFU/ML. 06/12/20 16:39 Clean Catch Urine - Final Escherichia Coli 06/12/20 14:54 Throat Culture & Sensitivity - Final NORMAL UPPER RESPIRATORY MINOR GROWN. Assessment & Plan - Problems (Diagnosis) (1) Neutropenic fever Current Visit: Yes Status: Acute (2) Viral syndrome Current Visit: Yes Status: Acute (3) COVID-19 ruled out Current Visit: Yes Status: Acute (4) Hypertension Current Visit: Yes Status: Acute (5) Hyperlipidemia Current Visit: Yes Status: Acute Physician Review Additional Text: Pancytopenia Neutropenic fever Possible viral syndrome To rule out COVID 19 Hypertension Hyperlipidemia Elevated LFTs UTI Plan No acute events Pancytopenia still present Afebrile Monitor CBC daily On empiric antibiotics Continue home medications and titrate as needed Neutropenic precautions Monitored renal parameters CT chest abdomen and pelvis findings noted Appreciate help from Hematology ? Blast cells in the peripheral smear ID consulted May need Bone Marrow biopsy Monitor CBC and transfuse p.r.n. GI/DVT prophylaxis Advanced directives full code Disposition: Discusses the family regarding Dc planning Patient need bone marrow to rule out leukemia Patient has UTI continue antibiotics ID recommendations For continuing antibiotics at home pending Time Spent Managing Pts Care (In Minutes): 43
--- NOTE | 2020-06-15 13:27 | P.PN ---
Date of Service: 06/15/20 Subjective: Patient is a 85-year-old female who presents with headache, sore throat, body aches since 06/05. Patient was seen by her PCP who did a urine sample that was negative. Patient's symptoms progressively got worse and she started to have fevers and dark colored stool. I was consulted for fever and pancytopenia. Patient examiend at bedside. Reports walked with physical therapy today. Still with body aches and sore gums. Objective: Temp Pulse Resp BP Pulse Ox 98.0 F 69 18 131/72 94 06/15/20 12:00 06/15/20 12:00 06/15/20 12:00 06/15/20 12:00 06/15/20 12:00 Labs: Na 129, K 3.7, BUN 7, creatinine 0.64, albumin 3.1, WBC 0.7, hemoglobin 8.2, hematocrit 23.1, platelets 68 Chest/Abd/ Pelvis CT 06/13: EXAM DESCRIPTION: CT - Chest Abdomen Pelvis W Cont - 06/13/2020 4:31 pm CLINICAL HISTORY: Chest and abdominal pain/pancytopenia TECHNIQUE: Computed axial tomography of the chest, abdomen and pelvis was obtained. 100 cc Isovue-300 was administered intravenously. Oral contrast was not requested. This limits evaluation of bowel. All CT scans are performed using dose optimization technique as appropriate and may include automated exposure control or mA/KV adjustment according to patient size. FINDINGS: Lungs are clear. No mediastinal or hilar lymphadenopathy No pleural effusion. No pericardial effusion. Small hiatal hernia Fatty liver. Cholecystectomy Spleen, pancreas, right adrenal kidneys are unremarkable. 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 Estrada
[2020-06-15] MEDS: FLUCONAZOLE 100 MG TAB PO SCH (15:37)
[2020-06-15] MEDS: ACYCLOVIR 400 MG TABLET PO SCH ×2 (15:37→21:08)
[2020-06-15 17:21] LABS: HIV AG/AB 4TH GEN Non-reactive (Non-reactive)
[2020-06-15] MEDS ORDERED: MAGIC MOUTHWASH 180 ML BTL PO PRN (17:52)
[2020-06-15] MEDS ORDERED: LIDOCAINE 4% TOP SOLUTION MM PRN (17:53)
[2020-06-15] MEDS: ALPRAZOLAM 0.5 MG TABLET PO PRN (21:18)
--- NOTE | 2020-06-15 23:24 | P.PN ---
Date of Service: 06/15/20 I had a detailed conversation at length with patient's daughter, Lesly and with patient. She is quite anxious and tearful with the discussion. She was contemplating about having the BM biopsy until now. Now seems agreeable to have the bone marrow biopsy but wishes to have it done under anesthesia/ CT guided. Smear shows blast like cells. Flow not diagnostic of leukemia but it does not mean there is no underlying bone marrow problem. Flow might not be reliable in the event of low white count. Bone marrow biopsy is needed to identify possible hematological disorder. It is also possible this could be just a significant viral exanthema. Growth factors not preferred in the event of possible AML. For now, c/w Broad spectrum antibiotics. c/w supportive care- magic mouth wash with lidocaine for the oral mucositis. Monitor vitals closely. Critical condition. Poor prognosis if no improvement in blood counts or clinical decline. If bone marrow biopsy supportive of a leukemic process, I feel she might not be able to tolerate intensive therapy. I would recommend best supportive care. She wishes to go home and follow up with me outpatient. She and her family do understand the increased risk of infections and clinical decline. In the event of any clinical decline or change in status, fevers, she was advised to seek immediate medical attention.
[2020-06-16] MEDS: NA CHLORIDE 0.9% 1,000 ML IV SCH ×2 (01:02→22:00)
[2020-06-16] MEDS: PANTOPRAZOLE 40MG TABLET PO SCH (05:13)
[2020-06-16] MEDS: LEVOTHYROXINE SOD 0.125 MG TAB PO SCH (05:13)
[2020-06-16 06:15] LABS: Absolute Lymphocytes (CBC) 0.4 K/uL (0.7-4.9); Basophils % 0.1 % (0-1.3); Hematocrit 20.8 % (36.0-45.0); Lymphocytes % 59.2 % (15.3-44.8); MPV 6.8 fL (7.6-11.3); RBC Red Blood Cell Count 2.11 M/uL (3.86-4.86)
[2020-06-16 06:24] LABS: Magnesium 2.1 mg/dL (1.8-2.4); Phosphorus 2.1 mg/dL (2.5-4.9); Potassium 3.6 mmol/L (3.5-5.1)
[2020-06-16 07:12] LABS: Blood Morphology Comment NOT SEEN (NOT SEEN); Platelet Estimate DECR
[2020-06-16] MEDS ORDERED: LIDOCAINE VISCOUS 2% SOLN 15 ML UDC MM PRN (08:10)
[2020-06-16] MEDS: CEFEPIME/SWI 1gm 10 ML IVP SCH ×2 (08:27→21:42)
[2020-06-16] MEDS: POTASS/SODIUM PHOSPHATE 1 PKT POWD.PACK PO SCH ×2 (08:27→09:18)
[2020-06-16] MEDS: ENOXAPARIN 40 MG/0.4 ML SQ SCH (08:28)
[2020-06-16] MEDS: METOPROLOL TAR 25 MG TAB PO SCH ×2 (08:29→21:41)
[2020-06-16] MEDS: MULTIVITAMIN TAB PO SCH (08:29)
[2020-06-16] MEDS: LACTOBACILLUS/ACIDOPHILUS TAB PO SCH ×3 (08:30→21:41)
[2020-06-16] MEDS: DILTIAZEM HCL 180 MG SR CAP PO SCH (08:30)
[2020-06-16] MEDS: DOCOSAHEXANOIC AC/EPA 1000 MG PO SCH (08:30)
[2020-06-16] MEDS: CALCIUM CARB 500MG/VIT D 200 IU TAB PO SCH (08:31)
[2020-06-16] MEDS: FLUCONAZOLE 100 MG TAB PO SCH (08:31)
[2020-06-16] MEDS: ACYCLOVIR 400 MG TABLET PO SCH ×3 (08:31→21:41)
[2020-06-16] MEDS: hydroCHLOROthiazide 25 MG TAB PO SCH (08:32)
[2020-06-16] MEDS: lisinopriL 20 MG TAB PO SCH (08:33)
[2020-06-16] MEDS: FIBER PO SCH ×2 (08:34→21:00)
--- NOTE | 2020-06-16 08:55 | P.PN ---
Date of Service: 06/16/20 Subjective: Patient is a 85-year-old female who presents with headache, sore throat, body aches since 06/05. Patient was seen by her PCP who did a urine sample that was negative. Patient's symptoms progressively got worse and she started to have fevers and dark colored stool. I was consulted for fever and pancytopenia. Patient examined at bedside. No new changes. Objective: Temp Pulse Resp BP Pulse Ox 97.3 F 79 18 143/65 H 95 06/16/20 08:00 06/16/20 08:33 06/16/20 08:00 06/16/20 08:33 06/16/20 08:00 Chest/Abd/ Pelvis CT 06/13: EXAM DESCRIPTION: CT - Chest Abdomen Pelvis W Cont - 06/13/2020 4:31 pm CLINICAL HISTORY: Chest and abdominal pain/pancytopenia TECHNIQUE: Computed axial tomography of the chest, abdomen and pelvis was obtained. 100 cc Isovue-300 was administered intravenously. Oral contrast was not requested. This limits evaluation of bowel. All CT scans are performed using dose optimization technique as appropriate and may include automated exposure control or mA/KV adjustment according to patient size. FINDINGS: Lungs are clear. No mediastinal or hilar lymphadenopathy No pleural effusion. No pericardial effusion. Small hiatal hernia Fatty liver. Cholecystectomy Spleen, pancreas, right adrenal kidneys are unremarkable. 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 Estrada
[2020-06-16] MEDS ORDERED: POTASSIUM CL SA 10 MEQ TAB PO ONE (09:00)
--- NOTE | 2020-06-16 09:57 | P.PN ---
Subjective Date of Service: 06/16/20 Chief Complaint: Neutropenic fever Subjective: No new changes, Other (No acute events Patient wanted go home Discussed in detail with the lab findings) Review of Systems 10-point ROS is otherwise unremarkable Physical Examination - Vital Signs Temperature: 97.3 F Blood Pressure: 143/65 Pulse: 79 Respirations: 18 Pulse Ox (%): 95 - Physical Exam General: Alert, In no apparent distress HEENT: Atraumatic, Normocephalic Neck: Supple Respiratory: Clear to auscultation bilaterally, Normal air movement Cardiovascular: Regular rate/rhythm, Normal S1 S2 Capillary refill: <2 Seconds Gastrointestinal: Soft and benign, W/out hepatosplenomegaly Musculoskeletal: No clubbing, No swelling Integumentary: No rashes Neurological: Normal speech, Normal strength at 5/5 x4 extr Lymphatics: No axilla or inguinal lymphadenopathy - Studies Microbiology Data (last 24 hrs): 06/12/20 16:39 Clean Catch Urine [place] Count - Final >100,000 CFU/ML. 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 Blast cells in the peripheral smear ID consulted May need Bone Marrow biopsy Monitor CBC and transfuse p.r.n. GI/DVT prophylaxis Advanced directives full code Disposition: Patient need bone marrow to rule out leukemia Discussed with hematology Patient wants to get bone marrow done under sedation Will initiate transfer to higher level of care Time Spent Managing Pts Care (In Minutes): 43
[2020-06-16] MEDS ORDERED: NA CHLORIDE 0.9% 250 ML IV SCH (10:00)
[2020-06-16] MEDS ORDERED: NA CHLORIDE 0.9% 250 ML ONE (11:21)
[2020-06-16] MEDS: ACETAMINOPHEN 500 MG TAB PO PRN (16:54)
[2020-06-16] MEDS: ALPRAZOLAM 0.5 MG TABLET PO PRN ×2 (16:55→21:46)
[2020-06-16 19:49] LABS: Hematocrit 28.3 % (36.0-45.0)
[2020-06-16 21:13] LABS: HBsAG Nonreactive (Nonreactive)
[2020-06-16] MEDS: MAGIC MOUTHWASH 180 ML BTL PO PRN (21:43)
[2020-06-17] MEDS: NA CHLORIDE 0.9% 1,000 ML IV SCH ×2 (04:34→17:16)
[2020-06-17] MEDS: PANTOPRAZOLE 40MG TABLET PO SCH (05:42)
[2020-06-17] MEDS: LEVOTHYROXINE SOD 0.125 MG TAB PO SCH (05:42)
[2020-06-17 06:20] LABS: Absolute Lymphocytes (CBC) 0.4 K/uL (0.7-4.9); Basophils % 0.1 % (0-1.3); Lymphocytes % 51.2 % (15.3-44.8); MPV 7.3 fL (7.6-11.3); RBC Red Blood Cell Count 2.82 M/uL (3.86-4.86)
[2020-06-17 06:28] LABS: Phosphorus 1.6 mg/dL (2.5-4.9); Potassium 3.6 mmol/L (3.5-5.1)
[2020-06-17] MEDS: DILTIAZEM HCL 180 MG SR CAP PO SCH (08:47)
[2020-06-17] MEDS: LACTOBACILLUS/ACIDOPHILUS TAB PO SCH ×3 (08:48→20:50)
[2020-06-17] MEDS: hydroCHLOROthiazide 25 MG TAB PO SCH (08:49)
[2020-06-17] MEDS: FLUCONAZOLE 100 MG TAB PO SCH (08:49)
[2020-06-17] MEDS: lisinopriL 20 MG TAB PO SCH (08:49)
[2020-06-17] MEDS: CALCIUM CARB 500MG/VIT D 200 IU TAB PO SCH (08:49)
[2020-06-17] MEDS: MULTIVITAMIN TAB PO SCH (08:50)
[2020-06-17] MEDS: DOCOSAHEXANOIC AC/EPA 1000 MG PO SCH (08:50)
[2020-06-17] MEDS: ACYCLOVIR 400 MG TABLET PO SCH ×3 (08:50→20:50)
[2020-06-17] MEDS: METOPROLOL TAR 25 MG TAB PO SCH ×2 (08:50→20:51)
[2020-06-17] MEDS: CEFEPIME/SWI 1gm 10 ML IVP SCH ×2 (08:51→20:50)
[2020-06-17] MEDS: FIBER PO SCH ×2 (08:51→21:00)
[2020-06-17] MEDS: ENOXAPARIN 40 MG/0.4 ML SQ SCH (08:51)
[2020-06-17] MEDS ORDERED: POTASSIUM CL SA 10 MEQ TAB PO ONE (09:00)
--- NOTE | 2020-06-17 09:17 | P.PN ---
Subjective Date of Service: 06/17/20 Chief Complaint: Neutropenic fever Subjective: No new changes, Other (No acute events) Review of Systems 10-point ROS is otherwise unremarkable Physical Examination - Vital Signs Temperature: 97.4 F Blood Pressure: 140/55 Pulse: 79 Respirations: 16 Pulse Ox (%): 94 - Physical Exam General: Alert, In no apparent distress HEENT: Atraumatic, Normocephalic Neck: Supple Respiratory: Clear to auscultation bilaterally Cardiovascular: Regular rate/rhythm, Normal S1 S2 Capillary refill: <2 Seconds Gastrointestinal: Soft and benign, Non-distended, W/out hepatosplenomegaly Musculoskeletal: No clubbing Integumentary: No rashes Neurological: Normal speech, Normal strength at 5/5 x4 extr Lymphatics: No axilla or inguinal lymphadenopathy Assessment & Plan - Problems (Diagnosis) (1) Neutropenic fever Current Visit: Yes Status: Acute (2) Viral syndrome Current Visit: Yes Status: Acute (3) COVID-19 ruled out Current Visit: Yes Status: Acute (4) Hypertension Current Visit: Yes Status: Acute (5) Hyperlipidemia Current Visit: Yes Status: Acute Physician Review Additional Text: Pancytopenia Neutropenic fever Possible viral syndrome To rule out COVID 19 Hypertension Hyperlipidemia Elevated LFTs UTI Plan Hemoglobin monitored Status post transfusion 2 units PRBC Discuss with [place] machine operator and the patient Pancytopenia still present Afebrile Monitor CBC daily UTI : continue antibiotics On empiric antibiotics for neutropenia Continue home medications and titrate as needed Neutropenic precautions Monitored renal parameters CT chest abdomen and pelvis findings noted Appreciate help from Hematology ? Blast cells in the peripheral smear ID consulted May need Bone Marrow biopsy Monitor CBC and transfuse p.r.n. GI/DVT prophylaxis Advanced directives full code Disposition: Patient need bone marrow to rule out leukemia Discussed with hematology Patient wants to get bone marrow done under sedation Will initiate transfer to [facility] Awaiting bed availability Time Spent Managing Pts Care (In Minutes): 43
[2020-06-17] MEDS: POTASS/SODIUM PHOSPHATE 1 PKT POWD.PACK PO SCH ×2 (09:36→10:30)
[2020-06-17] MEDS: ACETAMINOPHEN 500 MG TAB PO PRN (15:25)
[2020-06-17] MEDS: ALPRAZOLAM 0.5 MG TABLET PO PRN (20:50)
[2020-06-18] MEDS: LEVOTHYROXINE SOD 0.125 MG TAB PO SCH (05:46)
[2020-06-18 05:48] LABS: Absolute Lymphocytes (CBC) 0.4 K/uL (0.7-4.9); Basophils % 0.3 % (0-1.3); Hematocrit 26.7 % (36.0-45.0); Lymphocytes % 55.7 % (15.3-44.8); MPV 6.6 fL (7.6-11.3); RBC Red Blood Cell Count 2.79 M/uL (3.86-4.86)
[2020-06-18 06:08] LABS: BUN Blood Urea Nitrogen 9 mg/dL (7-18); Bicarbonate 25 mmol/L (21-32); Glucose Level 99 mg/dL (74-106); Phosphorus 1.8 mg/dL (2.5-4.9); Potassium 3.5 mmol/L (3.5-5.1); Sodium Level 132 mmol/L (136-145)
[2020-06-18] MEDS ORDERED: POTASSIUM PHOS IN 0.9 % NACL 15 MMOL/250 ML BAG IV ONE (07:00)
[2020-06-18] MEDS: ENOXAPARIN 40 MG/0.4 ML SQ SCH (08:29)
[2020-06-18] MEDS: FIBER PO SCH ×2 (08:29→20:26)
[2020-06-18] MEDS: CEFEPIME/SWI 1gm 10 ML IVP SCH ×2 (08:30→20:23)
[2020-06-18] MEDS: DOCOSAHEXANOIC AC/EPA 1000 MG PO SCH (08:31)
[2020-06-18] MEDS: LACTOBACILLUS/ACIDOPHILUS TAB PO SCH ×3 (08:32→20:25)
[2020-06-18] MEDS: MULTIVITAMIN TAB PO SCH (08:32)
[2020-06-18] MEDS: METOPROLOL TAR 25 MG TAB PO SCH ×2 (08:32→20:26)
[2020-06-18] MEDS: PANTOPRAZOLE 40MG TABLET PO SCH (08:32)
[2020-06-18] MEDS: FLUCONAZOLE 100 MG TAB PO SCH (08:32)
[2020-06-18] MEDS: CALCIUM CARB 500MG/VIT D 200 IU TAB PO SCH (08:32)
[2020-06-18] MEDS: ACYCLOVIR 400 MG TABLET PO SCH ×3 (08:33→20:25)
[2020-06-18] MEDS: hydroCHLOROthiazide 25 MG TAB PO SCH (08:35)
[2020-06-18] MEDS: lisinopriL 20 MG TAB PO SCH (08:35)
[2020-06-18] MEDS: DILTIAZEM HCL 180 MG SR CAP PO SCH (08:35)
--- NOTE | 2020-06-18 09:25 | P.PN ---
Subjective Date of Service: 06/18/20 Chief Complaint: Neutropenic fever Subjective: No new changes, Other (Afebrile no chest pain or shortness of breath no cough nausea vomiting or diarrhea denies any dysuria) Review of Systems 10-point ROS is otherwise unremarkable Physical Examination - Vital Signs Temperature: 98.6 F Blood Pressure: 147/65 Pulse: 81 Respirations: 17 Pulse Ox (%): 96 - Physical Exam General: Alert, In no apparent distress HEENT: Atraumatic, Normocephalic Neck: Supple Respiratory: Clear to auscultation bilaterally Cardiovascular: Regular rate/rhythm, Normal S1 S2 Capillary refill: <2 Seconds Gastrointestinal: Soft and benign, W/out hepatosplenomegaly Musculoskeletal: No clubbing, No swelling Integumentary: No rashes Neurological: Normal speech, Normal strength at 5/5 x4 extr Lymphatics: No axilla or inguinal lymphadenopathy - Studies Microbiology Data (last 24 hrs): 06/12/20 14:37 Blood - Blood Aerobic Blood Culture - Final No growth in 5 days. 06/12/20 14:37 Blood - Blood Anaerobic Blood Culture - Final No growth in 5 days. 06/12/20 15:04 Blood - Blood Aerobic Blood Culture - Final No growth in 5 days. 06/12/20 15:04 Blood - Blood Anaerobic Blood Culture - Final No growth in 5 days. 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 Blast cells in the peripheral smear ID consulted May need Bone Marrow biopsy Monitor CBC and transfuse p.r.n. GI/DVT prophylaxis Advanced directives full code Disposition: Patient need bone marrow to rule out leukemia Discussed with hematology Patient wants to get bone marrow done under sedation Initiated transfer to [facility] Still Awaiting bed availability Time Spent Managing Pts Care (In Minutes): 42
[2020-06-18] MEDS: ACETAMINOPHEN 500 MG TAB PO PRN (12:32)
[2020-06-18] MEDS: NA CHLORIDE 0.9% 1,000 ML IV SCH ×2 (14:00→22:58)
[2020-06-18] MEDS: MAGIC MOUTHWASH 180 ML BTL PO PRN (20:25)
[2020-06-18] MEDS: ALPRAZOLAM 0.5 MG TABLET PO PRN (20:29)
[2020-06-19] MEDS: LEVOTHYROXINE SOD 0.125 MG TAB PO SCH (05:32)
[2020-06-19 06:28] LABS: Absolute Lymphocytes (CBC) 0.4 K/uL (0.7-4.9); Basophils % 0.2 % (0-1.3); Hematocrit 28.7 % (36.0-45.0); MPV 6.7 fL (7.6-11.3)
[2020-06-19 06:36] LABS: BUN Blood Urea Nitrogen 8 mg/dL (7-18); Bicarbonate 26 mmol/L (21-32); Glucose Level 98 mg/dL (74-106); Potassium 3.4 mmol/L (3.5-5.1); Sodium Level 130 mmol/L (136-145)
[2020-06-19] MEDS ORDERED: DIAZEPAM 5 MG TABLET PO PRN (08:58)
[2020-06-19] MEDS: FIBER PO SCH ×2 (09:00→21:00)
[2020-06-19] MEDS ORDERED: POTASSIUM CL SA 10 MEQ TAB PO ONE (09:00)
[2020-06-19] MEDS: CEFEPIME/SWI 1gm 10 ML IVP SCH ×2 (09:43→21:09)
[2020-06-19] MEDS: ACETAMINOPHEN 500 MG TAB PO PRN (09:46)
[2020-06-19] MEDS: LACTOBACILLUS/ACIDOPHILUS TAB PO SCH ×3 (09:47→21:07)
[2020-06-19] MEDS: PANTOPRAZOLE 40MG TABLET PO SCH (09:47)
[2020-06-19] MEDS: POTASS/SODIUM PHOSPHATE 1 PKT POWD.PACK PO SCH ×3 (09:47→11:00)
[2020-06-19] MEDS: CALCIUM CARB 500MG/VIT D 200 IU TAB PO SCH (09:47)
[2020-06-19] MEDS: DOCOSAHEXANOIC AC/EPA 1000 MG PO SCH (09:48)
[2020-06-19] MEDS: hydroCHLOROthiazide 25 MG TAB PO SCH (09:48)
[2020-06-19] MEDS: DILTIAZEM HCL 180 MG SR CAP PO SCH (09:48)
[2020-06-19] MEDS: lisinopriL 20 MG TAB PO SCH (09:48)
[2020-06-19] MEDS: ACYCLOVIR 400 MG TABLET PO SCH ×3 (09:49→21:15)
[2020-06-19] MEDS: MULTIVITAMIN TAB PO SCH (09:49)
[2020-06-19] MEDS: METOPROLOL TAR 25 MG TAB PO SCH ×2 (09:49→21:07)
[2020-06-19] MEDS: FLUCONAZOLE 100 MG TAB PO SCH (09:49)
[2020-06-19] MEDS: ENOXAPARIN 40 MG/0.4 ML SQ SCH (09:50)
[2020-06-19] MEDS ORDERED: LIDOCAINE 1% 20 ML MDV ONE (12:39)
--- NOTE | 2020-06-19 13:20 | P.PN ---
Date of Service: 06/19/20 (Hem/Onc) Pt seen and examined today. She feels a bit better after the blood transfusion. Condition has remained stable and she has been afebrile. Shew is open to have the bone marrow biopsy today. I had a detailed conversation at length with her daughter, Lesly about the risks and benefits of the bone marrow biopsy. Patient is also awaiting a bed to get transferred to [facility] for higher level of care. Vitals reviewed. Hemodynamically stable. AT/NC, pallor+, oral mucositis (improved), Appears anxious RS clear CVS s1s2 no added sounds P/a soft, protuberant, BS+ IRRIGATION SPECIALIST: AAOx3, grossly normal, NFND Ext: no edema LympH: no palpable LAD Labs reviewed. WBC 0.7/ ANC 300 Hb 9.5 plt 63 COVID negative Assessment/ Plan: 85 year old woman admitted with s/s generally feeling unwell, sorethroat, body aches, with severe pancytopenia, presumed due to viral syndrome. But findings on smear are concerning. Pancytopenia: Peripheral smear reviewed shows ? suspicious looking blast like cells. Few wbc. Normocytic anemia and no increased schistocytes. She has normal coag panel. Retic count is low when compared to the degree of anemia. Adequate iron, B12, folate, normal LDH. No evidence supportive of hemolysis, TTP, or DIC. Though clinical presentation could be part of a viral exanthema, cannot r/o primary hematological BM process like leukemia, MDS, aplastic anemia etc. Her blood counts seem to be gradually trending down since March 2020. Her clinical symptoms are likely from ongoing neutropenia and immunosuppressed state. > She agrees to have the bone marrow biopsy done today. Risks, benefits, side effects explained ind etail to her and her daughter on phone, > c/w reverse isolation with broad spectrum antibiotic coverage- antibacterial, antiviral and and antifungal coverage. Get ID recommendations > Monitor vitals closely. Clinically she seems quite improved and remains afebrile. > Avoid growth factor support for now. > transfuse if Hb < 8gm or if symptomatic less than 9 gm > transfuse single donor plts if plt count < 20K, or if bleeding if < 50K. > Advanced care directives to be discussed with patient and her family. Daughter, Lesly understands that patient is in a critical condition due to severe pancytopenia and could have a clinical decline in the event of any sepsis. Patient as such understands and likely might incline for conservative measures in the near future but wishes to know the diagnosis for now and then decide. Bone marrow biopsy scheduled for today. Will closely follow. Please keep me posted if any change of status and do not hesitate to contact us with any questions or concerns.
--- NOTE | 2020-06-19 13:24 | P.PN ---
Date of Service: 06/19/20 (Hem/Onc) BONE MARROW BIOPSY/ ASPIRATION NOTE Time-out was called to confirm: patients name and date of , procedure, side and site of biopsy, safety procedures followed. Explained about risks, benefits and complications of procedure including but not limited to bleeding, pain, injury to adjoining structures, poor sampling, biopsy being inconclusive, infection, weakness, allergic reactions to local anesthesia, vasovagal syncope etc. - Performed by: self. - Assisted by Allison (lab director) and Melchor (nurse) - Informed consent: signed by patient and her daughter, Lesly. - Aspiration and biopsy site: [right] superior posterior iliac crest. - Patient position left lateral decubitus] - Preparation and technique: sterile preparation of site, draped to expose aspirate/ biopsy area, local anesthesia with 1% lidocaine (approximately 10ml), frequent pressure application on incision to maintain hemostasis. - Tissue obtained: bone marrow aspirate and biopsy were successfully obtained in sterile manner. 2 attempts made to get the biopsy. - Toleration of procedure and any complications: slight localized bleeding (2- 5ml). Patient tolerated procedure well. She will be monitored for any undue bleeding, pain, fevers etc. Specimen will be sent to [facility] for further evaluation. Patholosgist aware.
[2020-06-19 14:49] LABS: Cytogenetics, Bone Marrow SENT
--- NOTE | 2020-06-19 16:03 | P.PN ---
Date of Service: 06/19/20 Subjective: Patient is a 85-year-old female who presents with headache, sore throat, body aches since 06/05. Patient was seen by her PCP who did a urine sample that was negative. Patient's symptoms progressively got worse and she started to have fevers and dark colored stool. I was consulted for fever and pancytopenia. Patient examined at bedside, resting in bed. BMB done today. Objective: Temp Pulse Resp BP Pulse Ox 98.4 F 85 19 162/72 H 94 06/19/20 08:00 06/19/20 09:49 06/19/20 08:00 06/19/20 09:49 06/19/20 08:00 Chest/Abd/ Pelvis CT 06/13: EXAM DESCRIPTION: CT - Chest Abdomen Pelvis W Cont - 06/13/2020 4:31 pm CLINICAL HISTORY: Chest and abdominal pain/pancytopenia TECHNIQUE: Computed axial tomography of the chest, abdomen and pelvis was obtained. 100 cc Isovue-300 was administered intravenously. Oral contrast was not requested. This limits evaluation of bowel. All CT scans are performed using dose optimization technique as appropriate and may include automated exposure control or mA/KV adjustment according to patient size. FINDINGS: Lungs are clear. No mediastinal or hilar lymphadenopathy No pleural effusion. No pericardial effusion. Small hiatal hernia Fatty liver. Cholecystectomy Spleen, pancreas, right adrenal kidneys are unremarkable. 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 Estrada
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
[2020-06-19] MEDS: ALPRAZOLAM 0.5 MG TABLET PO PRN (21:07)
[2020-06-19] MEDS: MAGIC MOUTHWASH 180 ML BTL PO PRN (21:12)
[2020-06-19] MEDS: NA CHLORIDE 0.9% 1,000 ML IV SCH (23:16)
[2020-06-20 04:42] LABS: Absolute Lymphocytes (CBC) 0.4 K/uL (0.7-4.9); Basophils % 0.7 % (0-1.3); Lymphocytes % 66.8 % (15.3-44.8); MPV 6.4 fL (7.6-11.3); RBC Red Blood Cell Count 3.01 M/uL (3.86-4.86)
[2020-06-20 04:53] LABS: BUN Blood Urea Nitrogen 8 mg/dL (7-18); Bicarbonate 27 mmol/L (21-32); Glucose Level 103 mg/dL (74-106); Potassium 3.8 mmol/L (3.5-5.1); Sodium Level 131 mmol/L (136-145)
[2020-06-20] MEDS: LEVOTHYROXINE SOD 0.125 MG TAB PO SCH (05:48)
[2020-06-20] MEDS: NA CHLORIDE 0.9% 1,000 ML IV SCH ×2 (06:00→22:25)
[2020-06-20 07:23] LABS: Phosphorus 2.2 mg/dL (2.5-4.9)
--- NOTE | 2020-06-20 08:43 | P.PN ---
Date of Service: 06/20/20 Subjective: Patient is a 85-year-old female who presents with headache, sore throat, body aches since 06/05. Patient was seen by her PCP who did a urine sample that was negative. Patient's symptoms progressively got worse and she started to have fevers and dark colored stool. I was consulted for fever and pancytopenia. Patient examined at bedside, sitting upright on the side of the bed eating breakfast. Patient reports some dysuria and urinary frequency. Patient finished course of Maxipime for E.coli in the urine. Objective: Temp Pulse Resp BP Pulse Ox 98.1 F 77 16 147/67 H 95 06/20/20 04:00 06/20/20 04:00 06/20/20 04:00 06/20/20 04:00 06/20/20 04:00 Labs: Na 131, K 3.8, BUN 8, Creatinine 0.59, WBC, 0.6, Hgb 10.3, Hct 29.0, Plt 65 Chest/Abd/ Pelvis CT 06/13: EXAM DESCRIPTION: CT - Chest Abdomen Pelvis W Cont - 06/13/2020 4:31 pm CLINICAL HISTORY: Chest and abdominal pain/pancytopenia TECHNIQUE: Computed axial tomography of the chest, abdomen and pelvis was obtained. 100 cc Isovue-300 was administered intravenously. Oral contrast was not requested. This limits evaluation of bowel. All CT scans are performed using dose optimization technique as appropriate and may include automated exposure control or mA/KV adjustment according to patient size. FINDINGS: Lungs are clear. No mediastinal or hilar lymphadenopathy No pleural effusion. No pericardial effusion. Small hiatal hernia Fatty liver. Cholecystectomy Spleen, pancreas, right adrenal kidneys are unremarkable. 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 Estrada
[2020-06-20] MEDS ORDERED: POTASSIUM CL SA 10 MEQ TAB PO ONE (09:00)
[2020-06-20] MEDS: FIBER PO SCH ×2 (09:00→21:00)
[2020-06-20] MEDS: DILTIAZEM HCL 180 MG SR CAP PO SCH (09:03)
[2020-06-20] MEDS: CEFEPIME/SWI 1gm 10 ML IVP SCH (09:03)
[2020-06-20] MEDS: DOCOSAHEXANOIC AC/EPA 1000 MG PO SCH (09:03)
[2020-06-20] MEDS: ENOXAPARIN 40 MG/0.4 ML SQ SCH (09:05)
[2020-06-20] MEDS: CALCIUM CARB 500MG/VIT D 200 IU TAB PO SCH (09:06)
[2020-06-20] MEDS: ACYCLOVIR 400 MG TABLET PO SCH ×3 (09:06→22:23)
[2020-06-20] MEDS: hydroCHLOROthiazide 25 MG TAB PO SCH (09:06)
[2020-06-20] MEDS: lisinopriL 20 MG TAB PO SCH (09:06)
[2020-06-20] MEDS: METOPROLOL TAR 25 MG TAB PO SCH ×2 (09:07→22:23)
[2020-06-20] MEDS: FLUCONAZOLE 100 MG TAB PO SCH (09:07)
[2020-06-20] MEDS: LACTOBACILLUS/ACIDOPHILUS TAB PO SCH ×3 (09:07→22:23)
[2020-06-20] MEDS: PANTOPRAZOLE 40MG TABLET PO SCH (09:07)
[2020-06-20] MEDS: MULTIVITAMIN TAB PO SCH (09:07)
[2020-06-20 13:11] LABS: Urine Appearance CLEAR; Urine Bilirubin NEGATIVE (NEG); Urine Blood NEGATIVE (NEG); Urine Color YELLOW; Urine Glucose NEGATIVE (NEG); Urine Protein NEGATIVE (NEG); Urine Specific Gravity <=1.005 (1.005-1.030); Urine pH 7.5 (5.0-7.0)
[2020-06-20 13:14] LABS: Urine Microscopic Reflex NO UMIC
[2020-06-20] MEDS: ALPRAZOLAM 0.5 MG TABLET PO PRN (13:18)
--- NOTE | 2020-06-20 20:12 | P.PN ---
Subjective Date of Service: 06/20/20 Chief Complaint: Neutropenic fever Tolerated BM biopsy yseterday. no significant change or acute events overnight. Patient reports feeling about the same maybe slightly better. Denies chills/sweats, SOB, chest pain, abdominal pain. Review of Systems General: Unremarkable Eyes: Unremarkable ENT: Unremarkable Respiratory: Unremarkable Cardiovascular: Unremarkable Gastrointestinal: Unremarkable Genitourinary: Dysuria Musculoskeletal: Unremarkable Physical Examination - Vital Signs Temperature: 97.5 F Blood Pressure: 162/73 Pulse: 81 Respirations: 19 Pulse Ox (%): 93 - Physical Exam General: Alert, In no apparent distress HEENT: Mucous membr. moist/pink Neck: Supple Respiratory: Clear to auscultation bilaterally, Normal air movement Cardiovascular: No edema, Regular rate/rhythm, Normal S1 S2 Gastrointestinal: Hypoactive, Soft and benign, Non-distended, No tenderness Musculoskeletal: No erythema, Tenderness (at site of bone marrow biopsy) Integumentary: No rashes, No significant lesion Neurological: Normal speech, Normal affect (somewhat depressed) Assessment & Plan Physician Review Additional Text: Pancytopenia Neutropenic fever Possible viral syndrome To rule out COVID 19 Hypertension Hyperlipidemia Elevated LFTs UTI Plan Status post transfusion 2 units PRBC on 06/16 Hgb stable Heme consulted - bone marrow biospy done yesterday Pancytopenia still present, remains afebrile. Neutropenic precautions UTI: Cx: e.coli, s/p cefepime x 9 days, ID consulted, will discontinue per recommendations - repeat UA ordered due to dysuria Continue home medications and titrate as needed Monitor CBC and transfuse p.r.n. GI/DVT prophylaxis full code Disposition: discussed anticipation for dc home tomorrow, patient concerned she needs to stay in hospital until biopsy results back. Discussed this will take several days Time Spent Managing Pts Care (In Minutes): 35
[2020-06-20] MEDS: ACETAMINOPHEN 500 MG TAB PO PRN (22:24)
[2020-06-21] MEDS: NA CHLORIDE 0.9% 1,000 ML IV SCH (02:00)
[2020-06-21] MEDS: LEVOTHYROXINE SOD 0.125 MG TAB PO SCH (05:40)
[2020-06-21 05:46] LABS: Absolute Lymphocytes (CBC) 0.3 K/uL (0.7-4.9); Basophils % 0.2 % (0-1.3); Hematocrit 28.1 % (36.0-45.0); Lymphocytes % 69.8 % (15.3-44.8); MPV 6.6 fL (7.6-11.3); RBC Red Blood Cell Count 2.92 M/uL (3.86-4.86)
[2020-06-21 06:00] LABS: BUN Blood Urea Nitrogen 8 mg/dL (7-18); Bicarbonate 29 mmol/L (21-32); Glucose Level 102 mg/dL (74-106); Potassium 3.9 mmol/L (3.5-5.1); Sodium Level 130 mmol/L (136-145)
[2020-06-21] MEDS: DILTIAZEM HCL 180 MG SR CAP PO SCH (08:40)
[2020-06-21] MEDS: ENOXAPARIN 40 MG/0.4 ML SQ SCH (08:40)
[2020-06-21] MEDS: METOPROLOL TAR 25 MG TAB PO SCH (08:41)
[2020-06-21] MEDS: DOCOSAHEXANOIC AC/EPA 1000 MG PO SCH (08:41)
[2020-06-21] MEDS: lisinopriL 20 MG TAB PO SCH (08:41)
[2020-06-21] MEDS: MULTIVITAMIN TAB PO SCH (08:41)
[2020-06-21] MEDS: PANTOPRAZOLE 40MG TABLET PO SCH (08:41)
[2020-06-21] MEDS: FLUCONAZOLE 100 MG TAB PO SCH (08:42)
[2020-06-21] MEDS: hydroCHLOROthiazide 25 MG TAB PO SCH (08:42)
[2020-06-21] MEDS: CALCIUM CARB 500MG/VIT D 200 IU TAB PO SCH (08:42)
[2020-06-21] MEDS: LACTOBACILLUS/ACIDOPHILUS TAB PO SCH ×2 (08:42→13:35)
[2020-06-21] MEDS: ACYCLOVIR 400 MG TABLET PO SCH ×2 (08:42→13:35)
[2020-06-21] MEDS: FIBER PO SCH (08:43)
[2020-06-21 08:57] VITALS: O2SAT 96
[2020-06-21] MEDS ORDERED: POTASSIUM CL SA 10 MEQ TAB PO ONE (09:00)
[2020-06-21] MEDS: ACETAMINOPHEN 500 MG TAB PO PRN (09:43)
--- NOTE | 2020-06-21 12:23 | P.PN ---
Subjective Date of Service: 06/21/20 Chief Complaint: Neutropenic fever no significant change or acute events overnight. Patient reports feeling better this morning, less depressed. Nervous about biopsy results, otherwise denies chills/sweats, SOB, chest pain, abdominal pain. Review of Systems 10-point ROS is otherwise unremarkable Physical Examination - Vital Signs Temperature: 97.5 F Blood Pressure: 180/72 Pulse: 79 Respirations: 18 Pulse Ox (%): 98 - Physical Exam General: Alert, In no apparent distress, Oriented x3 HEENT: Mucous membr. moist/pink Neck: Supple, No LAD Respiratory: Clear to auscultation bilaterally, Normal air movement Cardiovascular: Regular rate/rhythm, Normal S1 S2 Gastrointestinal: Soft and benign, Non-distended, No tenderness Musculoskeletal: No erythema, Tenderness (over biopsy site) Integumentary: No rashes, No breakdown Neurological: Normal speech, Normal affect Assessment & Plan Physician Review Additional Text: Pancytopenia Neutropenic fever Possible viral syndrome To rule out COVID 19 Hypertension Hyperlipidemia Elevated LFTs UTI Plan Status post transfusion 2 units PRBC on 06/16 Hgb stable Heme consulted - bone marrow biospy completed (06/19), continues with pancytopenia, should result in next 1-2 days. Treatment plan dependent on biopsy results. If inconclusive, may need transfer to tertiary center Pancytopenia still present, remains afebrile. Neutropenic precautions UTI: Cx: e.coli, s/p cefepime x 9 days, ID consulted, dc'd per recommendations - repeat UA ordered due to dysuria was WNL Continue home medications and titrate as needed Monitor CBC and transfuse p.r.n. GI/DVT prophylaxis full code Disposition: Discussed with Dr. Blanco (Heme/Onc) - pt to remain inpatient until results of biopsy, if results inconclusive, may need transfer as noted above Time Spent Managing Pts Care (In Minutes): 35
--- NOTE | 2020-06-21 13:08 | P.PN ---
Date of Service: 06/21/20 Subjective: Patient is a 85-year-old female who presents with headache, sore throat, body aches since 06/05. Patient was seen by her PCP who did a urine sample that was negative. Patient's symptoms progressively got worse and she started to have fevers and dark colored stool. I was consulted for fever and pancytopenia. Patient examined at bedside, sitting upright in chair. Patient reports dysuria and urinary frequency improved. Patient finished course of Maxipime for E.coli in the urine. Patient reports strength is improving Objective: Temp Pulse Resp BP Pulse Ox 97.5 F 79 18 180/72 H 98 06/21/20 12:23 06/21/20 12:23 06/21/20 12:23 06/21/20 12:23 06/21/20 12:23 Labs: Na 130, K 3.9, BUN 8, Creatinine 0.62, WBC, 0.5, Hgb 9.9, Hct 28.1, Plt 57 Chest/Abd/ Pelvis CT 06/13: EXAM DESCRIPTION: CT - Chest Abdomen Pelvis W Cont - 06/13/2020 4:31 pm CLINICAL HISTORY: Chest and abdominal pain/pancytopenia TECHNIQUE: Computed axial tomography of the chest, abdomen and pelvis was obtained. 100 cc Isovue-300 was administered intravenously. Oral contrast was not requested. This limits evaluation of bowel. All CT scans are performed using dose optimization technique as appropriate and may include automated exposure control or mA/KV adjustment according to patient size. FINDINGS: Lungs are clear. No mediastinal or hilar lymphadenopathy No pleural effusion. No pericardial effusion. Small hiatal hernia Fatty liver. Cholecystectomy Spleen, pancreas, right adrenal kidneys are unremarkable. 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 Estrada
[2020-06-21 16:39] VITALS: BP 165/73; TEMP 98.1
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
== END 2020-06-21 16:03 | disposition home or self-care (01) | DRG 809 ==
LOC: ER 12:39 → ERHOLD 17:43 → 2ND 19:46
PROVIDERS: ADMIT Family Medicine; ATTEND Hospitalist
PROC: 30233N1 Transfusion of Nonautologous Red Blood Cells into Peripheral Vein, Percutaneous Approach (ICD-10-PCS; principal; 2020-06-16)
PROC: 07DR3ZX Extraction of Iliac Bone Marrow, Percutaneous Approach, Diagnostic (ICD-10-PCS; 2020-06-19)
DX: D61.818 Other pancytopenia (principal); N39.0 Urinary tract infection, site not specified; B34.9 Viral infection, unspecified; E03.9 Hypothyroidism, unspecified; I10 Essential (primary) hypertension; E78.5 Hyperlipidemia, unspecified; B96.20 Unspecified Escherichia coli [E. coli] as the cause of diseases classified elsewhere; R79.89 Other specified abnormal findings of blood chemistry; R50.81 Fever presenting with conditions classified elsewhere; Z79.890 Hormone replacement therapy; Z79.899 Other long term (current) drug therapy; Z20.828 Contact with and (suspected) exposure to other viral communicable diseases; Z60.2 Problems related to living alone; Z90.710 Acquired absence of both cervix and uterus; Z87.891 Personal history of nicotine dependence
CPT/HCPCS: 36415; 36430; 71045; 71260; 74177; 76700; 80048; 80053; 80074; 80076; 81003; 81015; 82607; 82728; 82746; 83540; 83605; 83615; 83690; 83735; 84100; 84145; 84550; 85014; 85018; 85025; 85044; 86850; 86880; 86900; 86901; 87040; 87070; 87077; 87081; 87086; 87088; 87186; 87389; 87804; 88305; 88311; 88313; 94760; 96360; 97116; 97161; 97530; 99285; J0692; J1650; J3475; J7030; J7040; J7050; P9016; Q9967; U0003